=== PATIENT | male | born 1950 | race Caucasian/White ===

== ENCOUNTER 2017-02-11 22:33 | Inpatient (IN) | payer MEDICARE, OTHER ==
[~2017-02-11] VITALS: Ht 167.6 cm; Wt 59.9 kg
[~2017-02-11 22:33] MED LIST: AMLO10TA2 PO; CLON1TAB4 PO; DOXA4TAB3 PO; FAMO20TA8 PO; FLUT1DIS3 IH; GABA-534 PO; HYDR100T27 PO; ISOS40TA16 PO; LEVE250T4 PO; METO50TA3 PO; MORP15TA PO; OXYC-128 PO; QUET100T PO; VALS80TA2 PO
--- NOTE | 2017-02-11 22:45 | NUR ---
PT ALTERED, PT BREATHING AT ALSOW RATE, PT BIBA, PER EMS, PTWAS GIVEN ALOT OF PAIN MECICATION AT HIS MCFP, PT RESPIRATORY RATE WAS SLOW AND SHALLOW, PT PUT ON O2, MD IN ROOM, IV PLACED, LABS DRAWN, PT ON MONITOR, WILL CONTINUE TO MONITOR.
[2017-02-11] MEDS ORDERED: IV SET PRIMARY 1 EA INFUS.SET MC ONE (23:14)
[2017-02-11] MEDS ORDERED: IV NS 0.9% 1,000 ML ONE (23:14)
[2017-02-11 23:16] LABS: BASOPHILS % (AUTO) 0.7 % (0.0-2.0); EOSINOPHILS # (AUTO) 0.3 /CMM (0.0-0.7); EOSINOPHILS % (AUTO) 4.9 % (0.0-6.0); HEMATOCRIT 34 % (39-51); HEMOGLOBIN 11.2 g/dL (13.5-17.5); LYMPHOCYTES # (AUTO) 1.3 /CMM (0.8-4.8); LYMPHOCYTES % (AUTO) 22.5 % (20.0-44.0); MEAN CORPUSCULAR HEMOGLOBIN 26 PG (26.0-33.0); MEAN CORPUSCULAR HGB CONC 33 g/dl (31.0-36.0); MEAN CORPUSCULAR VOLUME 80 fL (80-96); MONOCYTES # (AUTO) 1.2 /CMM (0.1-1.30); MONOCYTES % (AUTO) 21.6 % (2.0-12.0); NEUTROPHILS # (AUTO) 2.8 /CMM (1.8-8.9); NEUTROPHILS % (AUTO) 50.3 % (43.0-81.0); PLATELET COUNT (AUTO) 197 /CMM (150-450); RDW COEFFICIENT OF VARIATION 14.7 (11.5-15.0); RED BLOOD CELL COUNT(AUTO) 4.26 MIL/uL (4.5-6.0); WHITE BLOOD COUNT (AUTO) 5.6 K/uL (4.3-11.0)
[2017-02-11 23:25] LABS: ABG OXYGEN SATURATION 91.7 % (92.0-98.5); ABG PCO2 38.3 mmHg (35.0-45.0); ABG PH 7.406 (7.350-7.450); ABG PO2 67.7 mmHg (75.0-100.0); ABG TOTAL HEMOGLOBIN 10.9 G/dL (13.5-18.0); AaDO2 36.2 mmHg; COHb 1.5 % (0.5-1.5); MetHb 0.5 % (0.0-1.5); O2Hb 89.9 % (94.0-97.0); SITE, ABG Right Radial; VENT MODE, BG Room Air
[2017-02-11 23:27] LABS: CALCIUM, SERUM 8.7 mg/dL (8.5-10.1); POTASSIUM 3.9 mmol/L (3.5-5.1)
[2017-02-11] MEDS ORDERED: IV NS 0.9% 1,000 ML BAG IV ONE (23:30)
[2017-02-11 23:35] LABS: ALBUMIN 3.5 g/dL (3.4-5.0); D-DIMER 2.82 mg/L(FEU (0.17-0.50); INR 1.08 (0.87-1.13); PROTHROMBIN TIME 11.6 SECS (9.5-12.7)
[2017-02-11 23:53] LABS: BILIRUBIN,DIRECT 0.2 mg/dL (0.0-0.2); BILIRUBIN,TOTAL 0.5 mg/dL (0.2-1.0); TOTAL PROTEIN, SERUM 8.5 g/dL (6.4-8.2)
[2017-02-11 23:54] LABS: TROPONIN I 0.032 ng/mL (0.00-0.056)
[2017-02-11 23:57] LABS: BAND % (MANUAL) 1 % (0.0-5.0); EOSINOPHILS % (MANUAL) 3 % (0-4); LYMPHOCYTES % (MANUAL) 18 % (16-48); MONOCYTES % (MANUAL) 22 % (0-11.0); NEUTROPHILS % (MANUAL) 56 (42-76); PLATELET ESTIMATE ADEQUATE
[2017-02-12] VITALS (7 sets, daily range): BP systolic 101–116; BP diastolic 70–76
[2017-02-12 00:22] LABS: ACETONE, SERUM NEGATIVE (NEGATIVE)
[2017-02-12] MEDS ORDERED: ENOXAPARIN SODIUM 60 MG/0.6 ML DISP.SYRIN SQ ONE ×2 (00:30→00:44)
[2017-02-12 00:39] LABS: LACTIC ACID 1.1 mmol/L (0.4-2.0)
[2017-02-12] MEDS ORDERED: ACETAMINOPHEN 325 MG TABLET PO PRN (03:00)
--- NOTE | 2017-02-12 03:00 | NUR ---
LICENSED PRACTICAL NURSE CLINIC NURSE NOTE: RECEIVED PATIENT FROM ER, NO ACUTE DISTRESS NOTED. BREATHING EVEN AND UNLABORED, NO SOB NOTED AT THIS TIME. OXYGEN IN PLACE VIA NC AT 2 LPM. IV TO RFA IN PLACE. PATIENT ALTERED AND CONFUSED, UNABLE TO ANSWER ADMISSION QUESTION. BED LOCKED AND IN LOWEST POSITION, CALL LIGHT IN REACH. WILL CONTINUE TO MONITOR.
--- NOTE | 2017-02-12 06:05 | NUR ---
CLOTH MERCERIZING SUPERVISOR NOTE: PATIENT RESTING IN BED, NO ACUTE DISTRESS NOTED. BREATHING EVEN AND UNLABORED, NO SOB NOTED AT THIS TIME. IV TO RFA IN PLACE. BED LOCKED AND IN LOWEST POSITION, CALL LIGHT IN REACH. WILL ENDORSE TO DAY NURSE TO CONTINUE WITH PLAN OF CARE.
[2017-02-12 06:30] LABS: BASOPHILS % (AUTO) 0.6 % (0.0-2.0); EOSINOPHILS # (AUTO) 0.3 /CMM (0.0-0.7); EOSINOPHILS % (AUTO) 5.9 % (0.0-6.0); HEMATOCRIT 32 % (39-51); HEMOGLOBIN 10.3 g/dL (13.5-17.5); LYMPHOCYTES # (AUTO) 1.3 /CMM (0.8-4.8); LYMPHOCYTES % (AUTO) 29.5 % (20.0-44.0); MEAN CORPUSCULAR HEMOGLOBIN 26 PG (26.0-33.0); MEAN CORPUSCULAR HGB CONC 32 g/dl (31.0-36.0); MEAN CORPUSCULAR VOLUME 81 fL (80-96); MONOCYTES # (AUTO) 0.9 /CMM (0.1-1.30); NEUTROPHILS # (AUTO) 1.8 /CMM (1.8-8.9); PLATELET COUNT (AUTO) 153 /CMM (150-450); RDW COEFFICIENT OF VARIATION 14.6 (11.5-15.0); RED BLOOD CELL COUNT(AUTO) 3.96 MIL/uL (4.5-6.0); WHITE BLOOD COUNT (AUTO) 4.3 K/uL (4.3-11.0)
[2017-02-12 06:42] LABS: TROPONIN I 0.031 ng/mL (0.00-0.056)
[2017-02-12 06:46] LABS: CALCIUM, SERUM 8.1 mg/dL (8.5-10.1); CREATININE 1.5 mg/dL (0.6-1.3); POTASSIUM 3.6 mmol/L (3.5-5.1)
--- NOTE | 2017-02-12 07:15 | NUR ---
ROTARY ADJUSTER NOTES PATIENT IN BED, RESPONSIVE TO STIMULI, BREATHING EVEN AND UNLABORED, NO S/SX OF DISTRESS NOTED, NO S/SX OF PAIN OR DISCOMFORT AT THIS TIME, CALL LIGHT WITHIN REACH, WILL CONTINUE TO MONITOR.
--- NOTE | 2017-02-12 08:04 | NUR ---
WOUND CARE CONSULT: PATIENT SEEN AND SKIN ASSESSMENT DONE. PATIENT MOVABLE IN BED, INCONTINENT, TOMMY 15. PATIENT PRESENTS WITH INTACT SKIN AT THIS TIME. INCONTINENT SKIN CARE AND MOISTURE PROTECTION WITH Z GUARD ORDERED WAS DISCUSSED WITH NURSING STAFF. IN AGREEMENT WITH PLAN OF CARE. Addendum: 02/12/17 at 0806 by IVANA LOW WNDNU Amended: Links added.
--- NOTE | 2017-02-12 08:15 | NUR ---
DEPUTY CHIEF COUNSEL NOTES INFORMED DR. CELESTE PATIENT IS WHEEZING, BUT VITAL SIGNS STABLE, SPO2 ON 97% IN 2LPM VIA NC, DISCUSSED HOME MEDS RECONCILIATION, RECEIVED ORDER TO CONTINUE ALL MEDICATIONS, EXCEPT FOR PAIN MEDICATIONS AND TO GIVE ALBUTEROL AND ATROVENT Q6H PRN FOR WHEEZING. ORDER NOTED AND CARRIED OUT, PATIENT MADE AWARE AND AGREED. RT AWARE.
[2017-02-12] MEDS ORDERED: ALBUTEROL FS 2.5 MG/3 ML VIAL.NEB ONE (08:16)
[2017-02-12] MEDS ORDERED: IPRATROPIUM NEB FS 0.5 MG/2.5 ML AMPUL.NEB ONE (08:16)
[2017-02-12 08:18] LABS: EOSINOPHILS % (MANUAL) 2 % (0-4); LYMPHOCYTES % (MANUAL) 16 % (16-48); MONOCYTES % (MANUAL) 20 % (0-11.0); NEUTROPHILS % (MANUAL) 62 (42-76)
[2017-02-12 08:19] LABS: ANISOCYTOSIS 1+; HYPOCHROMASIA 1+; PLATELET ESTIMATE DECREASED
[2017-02-12] MEDS: ALBUTEROL FS 2.5 MG/3 ML VIAL.NEB NEB PRN (08:20)
[2017-02-12] MEDS: IPRATROPIUM NEB FS 0.5 MG/2.5 ML AMPUL.NEB NEB PRN (08:20)
[2017-02-12] MEDS ORDERED: Z GUARD REMEDY 2 OZ OINT TP PRN (08:30)
[2017-02-12] MEDS: METOPROLOL TARTRATE 50 MG TABLET PO SCH ×2 (09:00→21:00)
[2017-02-12] MEDS: VALSARTAN 80 MG TABLET PO SCH (09:00)
[2017-02-12] MEDS: DOXAZOSIN MESYLATE (4 MG) 4 MG TABLET PO SCH (09:00)
[2017-02-12] MEDS: AMLODIPINE BESYLATE 10 MG TABLET PO SCH (09:00)
[2017-02-12] MEDS: PANTOPRAZOLE 40 MG TABLET.DR PO SCH (09:22)
[2017-02-12] MEDS: GABAPENTIN 300 MG CAPSULE PO SCH ×3 (09:23→17:00)
[2017-02-12] MEDS: LEVETIRACETAM (250 MG) 250 MG TABLET PO SCH ×2 (09:23→21:23)
[2017-02-12] MEDS: Z GUARD REMEDY 2 OZ OINT TP SCH ×2 (09:24→16:54)
[2017-02-12] MEDS: hydrALAZINE HCL 50 MG TABLET PO SCH ×3 (09:24→16:57)
[2017-02-12] MEDS: ISOSORBIDE DINITRATE (20MG) 20 MG TABLET PO SCH ×2 (09:24→17:00)
[2017-02-12] MEDS: FLUTICASONE/SALMETEROL DISKUS IH SCH ×2 (09:25→16:57)
--- NOTE | 2017-02-12 10:00 | NUR ---
AUTO MECHANICS INSTRUCTOR NOTES PATIENT IN BED, ALERT AND ORIENTED X2, TOLERATED BREAKFAST AND MEDICATIONS. NO SOB NOTED, NO DISTRESS, NEEDS ATTENDED, WILL CONTINUE TO MONITOR.
[2017-02-12] MEDS ORDERED: LEVOFLOXACIN 500 MG /D5W 100ML 500 MG in PREMIX 1 EA IV SCH (12:00)
[2017-02-12] MEDS ORDERED: ENOXAPARIN SODIUM 60 MG/0.6 ML DISP.SYRIN SQ SCH (12:00)
[2017-02-12] MEDS: methylPREDNISolone SOD SUCC 125 MG/2ML VIAL IV SCH ×2 (12:48→16:54)
[2017-02-12] MEDS ORDERED: IV SET PRIMARY PUMP SET 1 EA INFUS.SET MC ONE (12:55)
[2017-02-12] MEDS ORDERED: IV NS 0.9% 250 ML IV ONE (12:55)
[2017-02-12] MEDS ORDERED: LEVOFLOXACIN 500 MG /D5W 100ML 500 MG in PREMIX 1 EA IV ONE (13:00)
[2017-02-12] MEDS ORDERED: SECONDARY IV SET 1 EA INFUS.SET MC ONE (13:31)
--- NOTE | 2017-02-12 17:06 | NUR ---
ELECTRICAL MANAGER NOTES PATIENT ASLEEP, EASILY AROUSABLE BUT WONT STAY AWAKE TO TAKE ORAL MEDICATIONS, REFUSED SOME MEDICATIONS AT THIS TIME. VITAL SIGNS STABLE, NO DISTRESS NOTED, CALL LIGHT WITHIN REACH, WILL CONTINUE TO MONITOR.
--- NOTE | 2017-02-12 17:09 | NUR ---
OFFICIAL GREETER NOTES MEDICATIONS WASTED WITNESSED BY ANOTHER RN. Addendum: 02/12/17 at 1711 by VERONICA RANDOLPH RN NURSE JOHN.
--- NOTE | 2017-02-12 18:42 | NUR ---
RN MS NOTES PATIENT IN BED, SLEEPING BUT RESPONSIVE TO STIMULI, NO S/SX OF PAIN OR DISTRESS NOTED AT THIS TIME, NO SIGNIFICANT CHANGE THIS SHIFT, BLE DOPPLER COMPLETED, RESULT STILL PENDING, ALL NEEDS ATTENDED AND MET, CALL LIGHT PLACED WITHIN REACH, WILL ENDORSE TO CARPENTER RAILCAR FOR STEFANY.
--- NOTE | 2017-02-12 19:26 | NUR ---
MS PARIS NOTES RECEIVED ON BED AWAKE,ALERT,ORIENTED X4,BREATHING REGULAR,NOT IN ANY FORM OF DISTRESS.FAMILY MEMBERS AT BEDSIDE.DENIES DISCOMFORTS AT THE MOMENT.PRESENT IVF INFUSING WELL ON RIGHT FA VIA IV PUMP.CALL LIGHT IN REACH,NEEDS ANTICIPATED. Addendum: 02/12/17 at 1941 by CHARITO SANTOS RN WRONG ENTRY OF NOTES
--- NOTE | 2017-02-12 19:41 | NUR ---
MS RN NOTES RECEIVED ON BED SLEEPING,AROUSABLE TO VERBAL STIMULI,BREATHING REGULAR,NOT IN ANY FORM OF DISTRESS.SALINE LOCK RFA INTACT AND PATENT.ENCOURAGED TO AT DINNER FOOD.CALL LIGHT IN REACH,NEEDS ANTICIPATED.
[2017-02-12] MEDS: FAMOTIDINE (20 MG) 20 MG TABLET PO SCH (21:25)
--- NOTE | 2017-02-12 21:30 | NUR ---
MS RN NOTES DUE PO MEDS TAKEN WELL WITH APPLE SAUCE.DUE LOPRESSOR 100MG PO HELD FOR DECREASED BP 101/73.
[2017-02-12] MEDS: clonazePAM 1 MG TABLET PO SCH (22:00)
--- NOTE | 2017-02-13 | NUR ---
MS RN NOTES NOTED IV SITE INFILTRATED,NEW SALINE LOCK PLACE ON LFA #22
[2017-02-13] MEDS: ONDANSETRON HCL/PF 4 MG/2 ML VIAL IV PRN ×2 (00:20→09:00)
--- NOTE | 2017-02-13 00:20 | NUR ---
MS RN NOTES VOMITED X1,MOSTLY UNDIGESTED FOOD,MEDICATED WITH ZOFRAN 4MG IV ON LEFT FOREARM SALINE LOCK.
--- NOTE | 2017-02-13 06:31 | NUR ---
MS RN NOTES SLEPT WELL AFTER MEDICATED WITH ZOFRAN.NO EPISODE OF SOB NOTED.MED COMPLAINT.NEGATIVE FOR ASPIRATION.NO EPISODE OF SEIZURE NOTED.SIDE RAILS PADDED FOR SAFETY.IN NO ACUTE DISTRESS.WILL ENDORSE TO DAY NURSE FOR STEFANY.
[2017-02-13 06:39] LABS: BASOPHILS % (AUTO) 0.2 % (0.0-2.0); EOSINOPHILS % (AUTO) 0.1 % (0.0-6.0); HEMATOCRIT 34 % (39-51); HEMOGLOBIN 11.1 g/dL (13.5-17.5); LYMPHOCYTES # (AUTO) 0.5 /CMM (0.8-4.8); LYMPHOCYTES % (AUTO) 14.6 % (20.0-44.0); MEAN CORPUSCULAR HEMOGLOBIN 26 PG (26.0-33.0); MEAN CORPUSCULAR HGB CONC 33 g/dl (31.0-36.0); MEAN CORPUSCULAR VOLUME 80 fL (80-96); MONOCYTES # (AUTO) 0.6 /CMM (0.1-1.30); MONOCYTES % (AUTO) 17.1 % (2.0-12.0); NEUTROPHILS # (AUTO) 2.6 /CMM (1.8-8.9); PLATELET COUNT (AUTO) 154 /CMM (150-450); RDW COEFFICIENT OF VARIATION 14.6 (11.5-15.0); RED BLOOD CELL COUNT(AUTO) 4.23 MIL/uL (4.5-6.0); WHITE BLOOD COUNT (AUTO) 3.8 K/uL (4.3-11.0)
[2017-02-13 07:11] LABS: CREATININE 1.4 mg/dL (0.6-1.3); POTASSIUM 3.4 mmol/L (3.5-5.1)
--- NOTE | 2017-02-13 07:17 | NUR ---
RN NOTES RECEIVED PT IN BED. SLEEPING,EASY TO AROUSE. IN NO APPARENT DISTRESS. RESPIRATIONS EVEN AND UNLABORED. DENIES PAIN AND DISCOMFORT. CALL LIGHT WITHIN REACH. WILL CONTINUE TO MONITOR
[2017-02-13 08:00] VITALS: BP_SYST 120; BP_SYST 130; BP_DIAS 83
[2017-02-13 08:37] LABS: HYPOCHROMASIA 1+; LYMPHOCYTES % (MANUAL) 18 % (16-48); MONOCYTES % (MANUAL) 16 % (0-11.0); NEUTROPHILS % (MANUAL) 66 (42-76); PLATELET ESTIMATE ADEQUATE
[2017-02-13] MEDS: PANTOPRAZOLE 40 MG TABLET.DR PO SCH (08:49)
[2017-02-13] MEDS: ENOXAPARIN SODIUM 40 MG/0.4 ML DISP.SYRIN SQ SCH (08:50)
[2017-02-13] MEDS: LEVETIRACETAM (250 MG) 250 MG TABLET PO SCH ×2 (08:51→22:00)
[2017-02-13] MEDS: VALSARTAN 80 MG TABLET PO SCH (08:57)
[2017-02-13] MEDS: FLUTICASONE/SALMETEROL DISKUS IH SCH ×2 (08:57→16:31)
[2017-02-13] MEDS: methylPREDNISolone SOD SUCC 125 MG/2ML VIAL IV SCH ×3 (08:57→16:30)
[2017-02-13] MEDS: DOXAZOSIN MESYLATE (4 MG) 4 MG TABLET PO SCH (08:57)
[2017-02-13] MEDS: METOPROLOL TARTRATE 50 MG TABLET PO SCH ×2 (08:58→22:01)
[2017-02-13] MEDS: ISOSORBIDE DINITRATE (20MG) 20 MG TABLET PO SCH ×2 (08:58→16:30)
[2017-02-13] MEDS: GABAPENTIN 300 MG CAPSULE PO SCH ×3 (08:58→16:30)
[2017-02-13] MEDS: hydrALAZINE HCL 50 MG TABLET PO SCH ×3 (08:58→16:30)
[2017-02-13] MEDS: AMLODIPINE BESYLATE 10 MG TABLET PO SCH (08:58)
[2017-02-13] MEDS: Z GUARD REMEDY 2 OZ OINT TP SCH ×2 (08:59→16:32)
--- NOTE | 2017-02-13 10:00 | NUR ---
RN NOTES PT TOLERATED ALL MEDS AND TREATMENTS. NOTED TO HAVE X2 EPISODE OF EMESIS AND SOME NAUSEA. ADMINSITERED PRN ZOFRAN. WILL CONTINUE TO MONITOR
--- NOTE | 2017-02-13 11:00 | NUR ---
RN NOTES PT SEEN BY PHYSICAL THERAPY FOR EVAL- ABLE TO AMBULATE WITH ASSISTANCE AND WITH WALKER, X 4 STEPS. PT NOTED WITH TACHYCARDIA- ASSISTED TO BED. WILL CONTINUE TO MONITOR
[2017-02-13] MEDS ORDERED: POTASSIUM CHLORIDE 20 MEQ TAB.PRT.SR PO SCH (11:30)
[2017-02-13] MEDS: LEVOFLOXACIN 250 MG /D5W 50 ML 250 MG in PREMIX 1 EA IV SCH (12:06)
--- NOTE | 2017-02-13 12:30 | NUR ---
RN NOTES PT SEEN AND EXAMINED BY DR CELESTE. REPORTED EPISODES OF TACHYCARDIA AND MULTIPLE EPISODES OF EMESIS- WITH NEW ORDERS NOTED AND CARRIED OUT. WILL CONTINUE TO MONITOR
[2017-02-13] MEDS ORDERED: ONDANSETRON HCL/PF 4 MG/2 ML VIAL IV PRN (13:30)
[2017-02-13] MEDS ORDERED: IV SET PRIMARY PUMP SET 1 EA INFUS.SET MC ONE (13:46)
[2017-02-13] MEDS: IV D5/ 0.9% NACL 1,000 ML IV SCH (13:52)
[2017-02-13 16:00] VITALS: BP 129/96
[2017-02-13] MEDS: MORPHINE SULFATE INJ 2 MG/ML DISP.SYRIN IV PRN (16:31)
--- NOTE | 2017-02-13 18:00 | NUR ---
RN NOTES PT IN BED. SLEEPING, BUT EASY TO AROUSE. IN NO APPARENT DISTRESS. RESPIRATIONS EVEN AND UNLABORED. NOTED IMPROVED NAUSEA. WILL ENDORSE TO ONCOMING SHIFT
[2017-02-13 20:00] VITALS: BP 119/78
--- NOTE | 2017-02-13 20:00 | NUR ---
MS NICHOLAS INITIAL NOTES PT SEEN IN BED AWAKE AND ALERT WATCHING TV AT THIS TIME, WITH 02 AT 2 LITERS VIA NC. NO SOB NOTED AT THIS TIME. IVF STILL INFUSING ON HIS RIGHT FOREARM GAUGE 22, PATENT AND INTACT , DENIES ANY PAIN OR ANY DISCOMFORT. KEPT HIM WARM AND COMFORTABLE AT ALL TIMES. WILL CONTINUE TO MONITOR. PLACE CALL LIGHT AT REACH.
[2017-02-13] MEDS: IPRATROPIUM NEB FS 0.5 MG/2.5 ML AMPUL.NEB NEB PRN (21:21)
[2017-02-13] MEDS: ALBUTEROL FS 2.5 MG/3 ML VIAL.NEB NEB PRN (21:21)
[2017-02-13] MEDS: FAMOTIDINE (20 MG) 20 MG TABLET PO SCH (22:00)
[2017-02-13] MEDS: clonazePAM 1 MG TABLET PO SCH (22:00)
--- NOTE | 2017-02-14 | NUR ---
MS NICHOLAS NOTES PT SLEEPING COMFORTABLY IN BED WITHOUT ANY ACUTE DISTRESS NOTED. RESPIRATION EVEN AND UN-LABORED. KEPT HIM WARM AND COMFORTABLE AT ALL TIMES. WILL CONTINUE TO MONITOR. PLACE CALL LIGHT AT REACH.
[2017-02-14] MEDS: IV D5/ 0.9% NACL 1,000 ML IV SCH ×2 (03:48→17:55)
--- NOTE | 2017-02-14 07:03 | NUR ---
CAMP HOUSEKEEPER/CLOSING NOTES MORNING CARE DONE AND PT SLEPT WELL, NO SIGNS OF ANY ACUTE DISTRESS NOTED. ALL DUE MEDS GIVEN AND ALL NEEDS MET. IVF STILL INFUSING . STABLE CARROL THE NIGHT AND ENDORSE TO AM NURSE FOR CONTINUITY OF CARE. PLACE CALL LIGHT AT REACH.
[2017-02-14 07:53] LABS: CALCIUM, SERUM 9.1 mg/dL (8.5-10.1); CREATININE 1.2 mg/dL (0.6-1.3); POTASSIUM 3.8 mmol/L (3.5-5.1)
[2017-02-14 08:00] VITALS: BP 139/87
--- NOTE | 2017-02-14 08:00 | NUR ---
MS RN OPENING NOTES PT IN BED RESTING. PT IS A/O X 3. PATIENT DID NOT SHOW ANY S/S OF DISTRESS. PT HAD 3 L/MIN OF O2 VIA NASAL CANNULA. RAISED THE HEAD OF THE BED TO ARCHULETA'S POSITION TO IMPROVE THE PATIENT'S WORK OF BREATHING. PT IV PATENT AND INTACT. PT BED IN LOW LOCKED POSITION. WILL CONTINUE TO MONITOR THE PATIENT FOR ANY CHANGES THROUGHOUT SHIFT.
[2017-02-14] MEDS: ENOXAPARIN SODIUM 40 MG/0.4 ML DISP.SYRIN SQ SCH (08:46)
[2017-02-14] MEDS: methylPREDNISolone SOD SUCC 125 MG/2ML VIAL IV SCH ×2 (08:47→21:32)
[2017-02-14] MEDS: VALSARTAN 80 MG TABLET PO SCH (08:48)
[2017-02-14] MEDS: LEVETIRACETAM (250 MG) 250 MG TABLET PO SCH ×2 (08:48→21:38)
[2017-02-14] MEDS: METOPROLOL TARTRATE 50 MG TABLET PO SCH ×2 (08:48→21:38)
[2017-02-14] MEDS: DOXAZOSIN MESYLATE (4 MG) 4 MG TABLET PO SCH (08:49)
[2017-02-14] MEDS: ISOSORBIDE DINITRATE (20MG) 20 MG TABLET PO SCH ×2 (08:49→17:52)
[2017-02-14] MEDS: AMLODIPINE BESYLATE 10 MG TABLET PO SCH (08:49)
[2017-02-14] MEDS: PANTOPRAZOLE 40 MG TABLET.DR PO SCH (08:49)
[2017-02-14] MEDS: GABAPENTIN 300 MG CAPSULE PO SCH ×3 (08:49→17:53)
[2017-02-14] MEDS: FLUTICASONE/SALMETEROL DISKUS IH SCH ×2 (08:50→17:52)
[2017-02-14] MEDS: hydrALAZINE HCL 50 MG TABLET PO SCH ×3 (08:50→17:53)
[2017-02-14] MEDS: Z GUARD REMEDY 2 OZ OINT TP SCH ×2 (08:52→17:55)
[2017-02-14] MEDS: ALBUTEROL FS 2.5 MG/3 ML VIAL.NEB NEB PRN ×2 (11:50→20:15)
[2017-02-14] MEDS: IPRATROPIUM NEB FS 0.5 MG/2.5 ML AMPUL.NEB NEB PRN ×2 (11:50→20:16)
[2017-02-14] MEDS: MORPHINE SULFATE INJ 2 MG/ML DISP.SYRIN IV PRN ×3 (12:10→22:09)
[2017-02-14] MEDS: LEVOFLOXACIN 250 MG /D5W 50 ML 250 MG in PREMIX 1 EA IV SCH (12:11)
[2017-02-14] MEDS ORDERED: SECONDARY IV SET 1 EA INFUS.SET MC ONE (12:14)
[2017-02-14 16:00] VITALS: BP 128/80
--- NOTE | 2017-02-14 19:00 | NUR ---
MS RN NOTES PATIENT IN BED RESTING NO SOB OR ACUTE DISTRESS NOTED. ALL DUE MEDICATIONS GIVEN ALL NEEDS MET WILL ENDORSE TO PM SHIFT STEFANY.
--- NOTE | 2017-02-14 19:10 | NUR ---
MS RN NOTES RECEIVED PT IN BED. AWAKE/ O X 2 , VERBALLY RESPONSIVE. WATCHING TV AT THIS TIME. NO ACUTE DISTRESS, NO SOB NOTED. ON 02 @ 2LPM VIA NC FRANCISCA WELL. 02 SAT IS 95 % AT THIS TIME. DENIES ANY PAIN OR DISCOMFORT AT THIS TIME. IV SITE ON RFA G # 22 INTACT AND PATENT , NO S/S OF INFILTRATION NOTED. IVF INFUSING WELL. ALL NEEDS ATTENDED AND MET. KEPT COMFORTABLE. CALL LIGHT WITHIN REACH. WILL CONTINUE TO MONITOR.
[2017-02-14 20:40] VITALS: BP 107/67
[2017-02-14] MEDS: clonazePAM 1 MG TABLET PO SCH (21:36)
[2017-02-14] MEDS: FAMOTIDINE (20 MG) 20 MG TABLET PO SCH (21:38)
[2017-02-14 22:00] VITALS: BP 107/67
[2017-02-15] MEDS: MORPHINE SULFATE INJ 2 MG/ML DISP.SYRIN IV PRN ×2 (03:20→08:56)
[2017-02-15] MEDS: IPRATROPIUM NEB FS 0.5 MG/2.5 ML AMPUL.NEB NEB PRN (03:37)
[2017-02-15] MEDS: ALBUTEROL FS 2.5 MG/3 ML VIAL.NEB NEB PRN (03:38)
--- NOTE | 2017-02-15 06:51 | NUR ---
MS RN NOTES PT IN BED. RESTING COMFORTABLY AT THIS TIME. AROUSES EASILY. AWAKE/ O X 2 , VERBALLY RESPONSIVE. WATCHING TV AT THIS TIME. NO ACUTE DISTRESS, NO SOB NOTED. ON 02 @ 2LPM VIA NC FRANCISCA WELL. 02 SAT IS 95 % AT THIS TIME. DENIES ANY PAIN OR DISCOMFORT AT THIS TIME. IV SITE ON RFA G # 22 INTACT AND PATENT , NO S/S OF INFILTRATION NOTED. IVF INFUSING WELL. ALL NEEDS ATTENDED AND MET. KEPT COMFORTABLE. CALL LIGHT WITHIN REACH. WILL ENDORSE TO NEXT SHIFT FOR STEFANY
[2017-02-15 08:00] VITALS: BP 130/82
--- NOTE | 2017-02-15 08:00 | NUR ---
MS RN NOTES PATIENT IN BED RESTING COMFORTABLE. IV INTACT PATENT ON RIGHT FOREARM RUNNING PRESCRIBED FLUIDS. BED IN LOW LOCKED POSITION. BED IN LOW LOCKED POSITION. WILL CONTINUE TO MONITOR.
[2017-02-15 08:31] LABS: CALCIUM, SERUM 8.4 mg/dL (8.5-10.1); CREATININE 1.2 mg/dL (0.6-1.3); POTASSIUM 3.1 mmol/L (3.5-5.1)
[2017-02-15] MEDS: PANTOPRAZOLE 40 MG TABLET.DR PO SCH (08:53)
[2017-02-15] MEDS: LEVETIRACETAM (250 MG) 250 MG TABLET PO SCH (08:53)
[2017-02-15] MEDS: DOXAZOSIN MESYLATE (4 MG) 4 MG TABLET PO SCH (08:54)
[2017-02-15] MEDS: methylPREDNISolone SOD SUCC 125 MG/2ML VIAL IV SCH (08:54)
[2017-02-15] MEDS: METOPROLOL TARTRATE 50 MG TABLET PO SCH (08:54)
[2017-02-15] MEDS: ISOSORBIDE DINITRATE (20MG) 20 MG TABLET PO SCH (08:55)
[2017-02-15] MEDS: GABAPENTIN 300 MG CAPSULE PO SCH ×2 (08:55→12:45)
[2017-02-15] MEDS: hydrALAZINE HCL 50 MG TABLET PO SCH ×2 (08:55→13:00)
[2017-02-15] MEDS: VALSARTAN 80 MG TABLET PO SCH (08:55)
[2017-02-15] MEDS: AMLODIPINE BESYLATE 10 MG TABLET PO SCH (08:55)
[2017-02-15] MEDS: IV D5/ 0.9% NACL 1,000 ML IV SCH (08:56)
[2017-02-15] MEDS: FLUTICASONE/SALMETEROL DISKUS IH SCH (08:56)
[2017-02-15] MEDS: ENOXAPARIN SODIUM 40 MG/0.4 ML DISP.SYRIN SQ SCH (08:57)
[2017-02-15] MEDS: Z GUARD REMEDY 2 OZ OINT TP SCH (08:58)
--- NOTE | 2017-02-15 10:00 | NUR ---
MS RN NOTES PATIENT SEEN AND EVALUATED BY DR CELESTE ORDERS NOTED AND CARRIED OUT.
[2017-02-15] MEDS: POTASSIUM CHLORIDE 20 MEQ TAB.PRT.SR PO SCH ×2 (12:45→13:21)
[2017-02-15 13:00] VITALS: BP 120/87
[2017-02-15] MEDS ORDERED: LEVOFLOXACIN (500MG) 500 MG TABLET PO SCH (13:00)
--- NOTE | 2017-02-15 13:40 | NUR ---
MS RN NOTES PATIENT DISCHARGED TO [facility] IN STABLE CONDITION. NO SOB OR ACUTE DISTRESS NOTED. REPORT GIVEN TO RN RATTLING MACHINE TENDER AT SNF. MD AWARE OF ALL ABNORMAL LABS. DISCHARGE INSTRUCTIONS PROVIDED TO PATIENT ALSO SN AT SNF. ALL BELONGINGS ACCOUNTED FOR, PATIENT SIGNED BELONGING LIST. MED RECON INCLUDED IN DISCHARGE PAPERWORK. IV REMOVED WITH MINIMAL BLEEDING. ID BAND REMOVED. DISCHARGED VIA AMBULANCE.
== END 2017-02-15 13:40 | DRG 189 ==
LOC: ER 22:36 → TELE 02-12 01:01 → MED 02-12 15:39
PROVIDERS: ADMIT Legal Medicine; ATTEND Legal Medicine
DX: J96.01 Acute respiratory failure with hypoxia (principal); G93.40 Encephalopathy, unspecified; J44.1 Chronic obstructive pulmonary disease with (acute) exacerbation; I42.9 Cardiomyopathy, unspecified; G89.4 Chronic pain syndrome; I10 Essential (primary) hypertension; K21.9 Gastro-esophageal reflux disease without esophagitis; J45.909 Unspecified asthma, uncomplicated; N40.0 Benign prostatic hyperplasia without lower urinary tract symptoms; F17.210 Nicotine dependence, cigarettes, uncomplicated; Z79.899 Other long term (current) drug therapy; Z98.2 Presence of cerebrospinal fluid drainage device; E78.00 Pure hypercholesterolemia, unspecified; R56.9 Unspecified convulsions; R94.31 Abnormal electrocardiogram [ECG] [EKG]
CPT/HCPCS: 36415; 36600; 71010-TC; 74000-TC; 78582; 80048-TC; 80061-TC; 80076-TC; 82010-TC; 82272-TC; 82962-TC; 83605-TC; 83880; 84484-TC; 85025-TC; 85378-TC; 85730-TC; 87081-TC; 93970-TC; 94799-TC; 97001-TC; 97116-TC; 97530-TC; A4216; A4606; A9540; A9567; J1650; J1956; J2270; J2405; J2930; J7030; J7042; J7050; Z7610

== ENCOUNTER 2017-04-18 19:20 | Inpatient (IN) | payer MEDICARE, OTHER ==
[~2017-04-18] VITALS: Ht 175.3 cm; Wt 55.3 kg
[~2017-04-18 19:20] MED LIST changes: -MORP15TA PO; -OXYC-128 PO
[2017-04-18 21:09] LABS: BASOPHILS % (AUTO) 0.4 % (0.0-2.0); EOSINOPHILS # (AUTO) 0.3 /CMM (0.0-0.7); EOSINOPHILS % (AUTO) 3.6 % (0.0-6.0); HEMATOCRIT 35 % (39-51); HEMOGLOBIN 11.4 g/dL (13.5-17.5); LYMPHOCYTES # (AUTO) 1.5 /CMM (0.8-4.8); MEAN CORPUSCULAR HEMOGLOBIN 25 PG (26.0-33.0); MEAN CORPUSCULAR HGB CONC 32 g/dl (31.0-36.0); MEAN CORPUSCULAR VOLUME 79 fL (80-96); MONOCYTES # (AUTO) 1.1 /CMM (0.1-1.30); MONOCYTES % (AUTO) 13.9 % (2.0-12.0); NEUTROPHILS # (AUTO) 5.1 /CMM (1.8-8.9); NEUTROPHILS % (AUTO) 63.1 % (43.0-81.0); PLATELET COUNT (AUTO) 229 /CMM (150-450); RDW COEFFICIENT OF VARIATION 14.9 (11.5-15.0)
[2017-04-18 21:21] LABS: CREATININE 2.4 mg/dL (0.6-1.3); POTASSIUM 4.4 mmol/L (3.5-5.1)
[2017-04-18 21:26] LABS: INR 1.11 (0.87-1.13); PROTHROMBIN TIME 11.6 SECS (9.5-12.7)
[2017-04-18 21:27] LABS: ALBUMIN 2.9 g/dL (3.4-5.0); BILIRUBIN,DIRECT 0.2 mg/dL (0.0-0.2); BILIRUBIN,TOTAL 0.5 mg/dL (0.2-1.0); TOTAL PROTEIN, SERUM 7.7 g/dL (6.4-8.2)
[2017-04-18 22:33] VITALS: BP 109/69
[2017-04-18] MEDS ORDERED: ONDANSETRON HCL/PF 4 MG/2 ML VIAL IV PRN (23:30)
[2017-04-18] MEDS ORDERED: ACETAMINOPHEN 325 MG TABLET PO PRN (23:30)
[2017-04-18] MEDS ORDERED: IV NS 0.9% 1,000 ML BAG IV PRN (23:30)
[2017-04-18] MEDS ORDERED: MORPHINE SULFATE INJ 2 MG/ML DISP.SYRIN IV PRN (23:30)
[2017-04-18] MEDS ORDERED: ENOXAPARIN SODIUM 40 MG/0.4 ML DISP.SYRIN SQ SCH (23:30)
[2017-04-18] MEDS ORDERED: CLONIDINE HCL 0.1 MG TABLET PO PRN (23:30)
[2017-04-19] MEDS ORDERED: ENOXAPARIN SODIUM 40 MG/0.4 ML DISP.SYRIN SQ ONE (00:21)
[2017-04-19] MEDS ORDERED: IV SET PRIMARY PUMP SET 1 EA INFUS.SET MC ONE (00:34)
[2017-04-19] MEDS ORDERED: IV NS 0.9% 1,000 ML ONE (00:34)
[2017-04-19 06:28] LABS: BASOPHILS % (AUTO) 0.5 % (0.0-2.0); EOSINOPHILS # (AUTO) 0.2 /CMM (0.0-0.7); EOSINOPHILS % (AUTO) 3.2 % (0.0-6.0); HEMATOCRIT 35 % (39-51); HEMOGLOBIN 11.4 g/dL (13.5-17.5); LYMPHOCYTES # (AUTO) 1.2 /CMM (0.8-4.8); LYMPHOCYTES % (AUTO) 16.5 % (20.0-44.0); MEAN CORPUSCULAR HEMOGLOBIN 26 PG (26.0-33.0); MEAN CORPUSCULAR HGB CONC 33 g/dl (31.0-36.0); MEAN CORPUSCULAR VOLUME 79 fL (80-96); MONOCYTES % (AUTO) 13.3 % (2.0-12.0); NEUTROPHILS % (AUTO) 66.5 % (43.0-81.0); PLATELET COUNT (AUTO) 203 /CMM (150-450); RED BLOOD CELL COUNT(AUTO) 4.37 MIL/uL (4.5-6.0); WHITE BLOOD COUNT (AUTO) 7.5 K/uL (4.3-11.0)
[2017-04-19 07:15] LABS: ALBUMIN 2.7 g/dL (3.4-5.0); BILIRUBIN,TOTAL 0.4 mg/dL (0.2-1.0); CREATININE 1.8 mg/dL (0.6-1.3); POTASSIUM 4.5 mmol/L (3.5-5.1); TOTAL PROTEIN, SERUM 7.5 g/dL (6.4-8.2)
[2017-04-19 07:50] VITALS: BP 125/79
[2017-04-19 08:00] VITALS: BP 125/79
[2017-04-19] MEDS ORDERED: OXYC-128 PO (08:10)
[2017-04-19] MEDS ORDERED: MORP15TA PO (08:10)
[2017-04-19] MEDS ORDERED: DOCU-25 PO (08:10)
[2017-04-19] MEDS ORDERED: FLUT1BLS IH (08:10)
[2017-04-19] MEDS: METOPROLOL TARTRATE 50 MG TABLET PO SCH ×2 (09:00→21:18)
[2017-04-19] MEDS ORDERED: MORPHINE SULFATE IR 15 MG TABLET PO SCH (09:00)
[2017-04-19] MEDS ORDERED: FLUTICASONE/SALMETEROL DISKUS IH SCH (09:00)
[2017-04-19] MEDS: AMLODIPINE BESYLATE 10 MG TABLET PO SCH (09:00)
[2017-04-19] MEDS: VALSARTAN 80 MG TABLET PO SCH (09:00)
[2017-04-19] MEDS ORDERED: ISOSORBIDE DINITRATE (20MG) 20 MG TABLET PO SCH (09:30)
[2017-04-19] MEDS: DOCUSATE SODIUM 100 MG CAPSULE PO SCH ×2 (09:38→17:20)
[2017-04-19] MEDS: LEVETIRACETAM (250 MG) 250 MG TABLET PO SCH ×2 (09:38→21:18)
[2017-04-19] MEDS: GABAPENTIN 300 MG CAPSULE PO SCH ×3 (09:38→17:20)
[2017-04-19] MEDS: DOXAZOSIN MESYLATE (4 MG) 4 MG TABLET PO SCH (09:39)
[2017-04-19] MEDS: PANTOPRAZOLE 40 MG TABLET.DR PO SCH (09:39)
[2017-04-19] MEDS: FLUTICASONE/VILANTEROL 1 EACH BLST.W.DEV IH SCH (12:50)
[2017-04-19] MEDS: hydrALAZINE HCL 50 MG TABLET PO SCH ×2 (13:00→21:18)
[2017-04-19 16:07] VITALS: BP 107/72
[2017-04-19] MEDS: ISOSORBIDE DINITRATE (20MG) 20 MG TABLET PO SCH (17:00)
[2017-04-19] MEDS: IV NS 0.9% 1,000 ML IV PRN (17:19)
[2017-04-19 20:03] VITALS: BP 118/77
[2017-04-19 20:30] VITALS: BP 118/77
[2017-04-19] MEDS: clonazePAM 1 MG TABLET PO SCH (21:18)
[2017-04-19] MEDS: QUETIAPINE FUMARATE 100 MG TABLET PO SCH (21:18)
[2017-04-19] MEDS: ENOXAPARIN SODIUM 40 MG/0.4 ML DISP.SYRIN SQ SCH (21:26)
[2017-04-20] MEDS: hydrALAZINE HCL 50 MG TABLET PO SCH ×3 (05:00→21:00)
[2017-04-20] MEDS: IV NS 0.9% 1,000 ML IV PRN (06:23)
[2017-04-20 07:16] LABS: BASOPHILS % (AUTO) 0.5 % (0.0-2.0); EOSINOPHILS # (AUTO) 0.2 /CMM (0.0-0.7); HEMATOCRIT 34 % (39-51); HEMOGLOBIN 11.3 g/dL (13.5-17.5); LYMPHOCYTES # (AUTO) 1.4 /CMM (0.8-4.8); LYMPHOCYTES % (AUTO) 24.6 % (20.0-44.0); MEAN CORPUSCULAR HEMOGLOBIN 26 PG (26.0-33.0); MEAN CORPUSCULAR HGB CONC 33 g/dl (31.0-36.0); MEAN CORPUSCULAR VOLUME 79 fL (80-96); MONOCYTES # (AUTO) 0.9 /CMM (0.1-1.30); MONOCYTES % (AUTO) 15.8 % (2.0-12.0); NEUTROPHILS # (AUTO) 3.1 /CMM (1.8-8.9); NEUTROPHILS % (AUTO) 55.1 % (43.0-81.0); PLATELET COUNT (AUTO) 176 /CMM (150-450); RDW COEFFICIENT OF VARIATION 15.8 (11.5-15.0); RED BLOOD CELL COUNT(AUTO) 4.33 MIL/uL (4.5-6.0); WHITE BLOOD COUNT (AUTO) 5.7 K/uL (4.3-11.0)
[2017-04-20 07:43] LABS: CALCIUM, SERUM 8.9 mg/dL (8.5-10.1); CREATININE 1.2 mg/dL (0.6-1.3); MAGNESIUM 1.8 mg/dL (1.8-2.4); POTASSIUM 3.9 mmol/L (3.5-5.1)
[2017-04-20] MEDS: LEVETIRACETAM (250 MG) 250 MG TABLET PO SCH ×2 (08:47→21:00)
[2017-04-20] MEDS: ISOSORBIDE DINITRATE (20MG) 20 MG TABLET PO SCH ×2 (08:48→17:07)
[2017-04-20] MEDS: GABAPENTIN 300 MG CAPSULE PO SCH ×3 (08:48→17:07)
[2017-04-20] MEDS: DOXAZOSIN MESYLATE (4 MG) 4 MG TABLET PO SCH (08:48)
[2017-04-20] MEDS: PANTOPRAZOLE 40 MG TABLET.DR PO SCH (08:49)
[2017-04-20] MEDS: AMLODIPINE BESYLATE 10 MG TABLET PO SCH (08:49)
[2017-04-20] MEDS: DOCUSATE SODIUM 100 MG CAPSULE PO SCH ×2 (08:49→17:07)
[2017-04-20] MEDS: METOPROLOL TARTRATE 50 MG TABLET PO SCH ×2 (08:50→21:00)
[2017-04-20] MEDS: VALSARTAN 80 MG TABLET PO SCH (08:50)
[2017-04-20] MEDS: ENOXAPARIN SODIUM 40 MG/0.4 ML DISP.SYRIN SQ SCH (08:51)
[2017-04-20] MEDS: FLUTICASONE/VILANTEROL 1 EACH BLST.W.DEV IH SCH (09:46)
[2017-04-20] MEDS: oxyCODONE/APAP (5/325 MG) 1 UDTAB TABLET PO PRN (19:03)
[2017-04-20 20:00] VITALS: BP 96/59
[2017-04-20] MEDS: QUETIAPINE FUMARATE 100 MG TABLET PO SCH (22:00)
[2017-04-20] MEDS: clonazePAM 1 MG TABLET PO SCH (22:00)
[2017-04-21] MEDS: hydrALAZINE HCL 50 MG TABLET PO SCH ×3 (04:52→20:43)
[2017-04-21 07:06] LABS: ALBUMIN 2.4 g/dL (3.4-5.0); BILIRUBIN,DIRECT 0.1 mg/dL (0.0-0.2); BILIRUBIN,TOTAL 0.3 mg/dL (0.2-1.0); CALCIUM, SERUM 8.9 mg/dL (8.5-10.1); CREATININE 1.1 mg/dL (0.6-1.3); MAGNESIUM 1.9 mg/dL (1.8-2.4); PHOSPHORUS 2.4 mg/dL (2.5-4.9); TOTAL PROTEIN, SERUM 6.9 g/dL (6.4-8.2)
[2017-04-21] MEDS: LEVETIRACETAM (250 MG) 250 MG TABLET PO SCH ×2 (08:54→20:38)
[2017-04-21] MEDS: DOCUSATE SODIUM 100 MG CAPSULE PO SCH ×2 (08:54→17:23)
[2017-04-21] MEDS: GABAPENTIN 300 MG CAPSULE PO SCH ×3 (08:54→17:23)
[2017-04-21] MEDS: AMLODIPINE BESYLATE 10 MG TABLET PO SCH (08:55)
[2017-04-21] MEDS: ENOXAPARIN SODIUM 40 MG/0.4 ML DISP.SYRIN SQ SCH (08:57)
[2017-04-21] MEDS: ISOSORBIDE DINITRATE (20MG) 20 MG TABLET PO SCH ×2 (09:00→17:22)
[2017-04-21] MEDS: METOPROLOL TARTRATE 50 MG TABLET PO SCH ×2 (09:00→20:39)
[2017-04-21] MEDS: FLUTICASONE/VILANTEROL 1 EACH BLST.W.DEV IH SCH (09:00)
[2017-04-21] MEDS: DOXAZOSIN MESYLATE (4 MG) 4 MG TABLET PO SCH (09:00)
[2017-04-21] MEDS: VALSARTAN 80 MG TABLET PO SCH (09:00)
[2017-04-21] MEDS: PANTOPRAZOLE 40 MG TABLET.DR PO SCH (09:01)
[2017-04-21 09:53] LABS: BASOPHILS % (AUTO) 0.4 % (0.0-2.0); EOSINOPHILS # (AUTO) 0.2 /CMM (0.0-0.7); EOSINOPHILS % (AUTO) 4.1 % (0.0-6.0); HEMATOCRIT 31 % (39-51); HEMOGLOBIN 10.1 g/dL (13.5-17.5); LYMPHOCYTES # (AUTO) 1.2 /CMM (0.8-4.8); LYMPHOCYTES % (AUTO) 19.5 % (20.0-44.0); MEAN CORPUSCULAR HEMOGLOBIN 26 PG (26.0-33.0); MEAN CORPUSCULAR HGB CONC 33 g/dl (31.0-36.0); MEAN CORPUSCULAR VOLUME 79 fL (80-96); MONOCYTES # (AUTO) 0.9 /CMM (0.1-1.30); MONOCYTES % (AUTO) 15.7 % (2.0-12.0); NEUTROPHILS # (AUTO) 3.6 /CMM (1.8-8.9); NEUTROPHILS % (AUTO) 60.3 % (43.0-81.0); PLATELET COUNT (AUTO) 188 /CMM (150-450); RDW COEFFICIENT OF VARIATION 15.9 (11.5-15.0); RED BLOOD CELL COUNT(AUTO) 3.91 MIL/uL (4.5-6.0)
[2017-04-21 10:51] LABS: BAND % (MANUAL) 2 % (0.0-5.0); EOSINOPHILS % (MANUAL) 1 % (0-4); LYMPHOCYTES % (MANUAL) 14 % (16-48); MONOCYTES % (MANUAL) 15 % (0-11.0); NEUTROPHILS % (MANUAL) 68 (42-76)
[2017-04-21] MEDS ORDERED: K PHOS NEUTRAL 250 MG TABLET PO ONE (16:00)
[2017-04-21 20:00] VITALS: BP 113/73
[2017-04-21] MEDS: MUPIROCIN OINT 2% 22 GM TUBE SCH (20:39)
[2017-04-21] MEDS: clonazePAM 1 MG TABLET PO SCH (21:52)
[2017-04-21] MEDS: QUETIAPINE FUMARATE 100 MG TABLET PO SCH (21:52)
[2017-04-22] MEDS: oxyCODONE/APAP (5/325 MG) 1 UDTAB TABLET PO PRN (01:27)
[2017-04-22] MEDS: hydrALAZINE HCL 50 MG TABLET PO SCH ×2 (04:49→13:00)
[2017-04-22 06:54] LABS: CALCIUM, SERUM 8.6 mg/dL (8.5-10.1); CREATININE 1.1 mg/dL (0.6-1.3); PHOSPHORUS 3.3 mg/dL (2.5-4.9); POTASSIUM 3.8 mmol/L (3.5-5.1)
[2017-04-22 08:00] VITALS: BP_SYST 111; BP_SYST 115; BP_DIAS 83; BP_DIAS 85
[2017-04-22] MEDS: METOPROLOL TARTRATE 50 MG TABLET PO SCH (09:00)
[2017-04-22] MEDS: LEVETIRACETAM (250 MG) 250 MG TABLET PO SCH (09:17)
[2017-04-22] MEDS: PANTOPRAZOLE 40 MG TABLET.DR PO SCH (09:17)
[2017-04-22] MEDS: DOCUSATE SODIUM 100 MG CAPSULE PO SCH (09:17)
[2017-04-22] MEDS: GABAPENTIN 300 MG CAPSULE PO SCH ×2 (09:19→13:41)
[2017-04-22] MEDS: ISOSORBIDE DINITRATE (20MG) 20 MG TABLET PO SCH (09:19)
[2017-04-22] MEDS: DOXAZOSIN MESYLATE (4 MG) 4 MG TABLET PO SCH (09:19)
[2017-04-22] MEDS: AMLODIPINE BESYLATE 10 MG TABLET PO SCH (09:20)
[2017-04-22] MEDS: VALSARTAN 80 MG TABLET PO SCH (09:21)
[2017-04-22] MEDS: ENOXAPARIN SODIUM 40 MG/0.4 ML DISP.SYRIN SQ SCH (09:29)
[2017-04-22] MEDS: FLUTICASONE/VILANTEROL 1 EACH BLST.W.DEV IH SCH (09:38)
[2017-04-22] MEDS: MUPIROCIN OINT 2% 22 GM TUBE SCH (09:39)
[2017-04-22 13:00] VITALS: BP 102/68
== END 2017-04-22 15:00 | DRG 551 ==
LOC: ER 19:21 → MED 21:26
PROVIDERS: ADMIT Legal Medicine; ATTEND Legal Medicine
DX: M48.06 Spinal stenosis, lumbar region (principal); G93.40 Encephalopathy, unspecified; N17.0 Acute kidney failure with tubular necrosis; E44.0 Moderate protein-calorie malnutrition; E87.0 Hyperosmolality and hypernatremia; G91.2 (Idiopathic) normal pressure hydrocephalus; F17.210 Nicotine dependence, cigarettes, uncomplicated; I10 Essential (primary) hypertension; J44.9 Chronic obstructive pulmonary disease, unspecified; K21.9 Gastro-esophageal reflux disease without esophagitis; N40.0 Benign prostatic hyperplasia without lower urinary tract symptoms; Z98.2 Presence of cerebrospinal fluid drainage device; D63.8 Anemia in other chronic diseases classified elsewhere; G89.4 Chronic pain syndrome; R74.0 Nonspecific elevation of levels of transaminase and lactic acid dehydrogenase [LDH]; F41.9 Anxiety disorder, unspecified; F32.9 Major depressive disorder, single episode, unspecified
CPT/HCPCS: 36415; 71010-TC; 72131-TC; 80048-TC; 80053-TC; 80076-TC; 83735-TC; 84100-TC; 85025-TC; 85730-TC; 87081-TC; 97001-TC; A4606; J1650; J7030; Z7610

== ENCOUNTER 2017-07-25 09:23 | Emergency (ER) | payer MEDICARE, OTHER ==
[~2017-07-25] VITALS: Ht 170.2 cm; Wt 63.5 kg
[~2017-07-25 09:23] MED LIST changes: +DOCU-25 PO; -FAMO20TA8 PO; +FLUT1BLS IH; +MORP15TA PO; +OXYC-128 PO
--- NOTE | 2017-07-25 09:35 | NUR ---
PT TO ED ROOM 02. BBPA FROM [facility]: NAUSEA, VOMITING SINCE LAST NIGHT ON/OFF. A/A/O x 3. VS WNL. SIDE RAILS UP. HOB ELEVATED. CONNECTED TO MONITOR. L AC G 20 IV STARTED, BLOOD TESTS DRAWN. SEN AND EVALUATED BY ED PROVIDER.
[2017-07-25 09:45] LABS: BASOPHILS % (AUTO) 0.3 % (0.0-2.0); EOSINOPHILS # (AUTO) 0.1 /CMM (0.0-0.7); EOSINOPHILS % (AUTO) 0.9 % (0.0-6.0); HEMATOCRIT 34 % (39-51); HEMOGLOBIN 10.7 g/dL (13.5-17.5); LYMPHOCYTES # (AUTO) 1.1 /CMM (0.8-4.8); LYMPHOCYTES % (AUTO) 12.2 % (20.0-44.0); MEAN CORPUSCULAR HEMOGLOBIN 25 PG (26.0-33.0); MEAN CORPUSCULAR HGB CONC 32 g/dl (31.0-36.0); MEAN CORPUSCULAR VOLUME 79 fL (80-96); MONOCYTES # (AUTO) 1.5 /CMM (0.1-1.30); MONOCYTES % (AUTO) 16.8 % (2.0-12.0); NEUTROPHILS # (AUTO) 6.5 /CMM (1.8-8.9); NEUTROPHILS % (AUTO) 69.8 % (43.0-81.0); PLATELET COUNT (AUTO) 262 /CMM (150-450); RDW COEFFICIENT OF VARIATION 14.9 (11.5-15.0); RED BLOOD CELL COUNT(AUTO) 4.25 MIL/uL (4.5-6.0); WHITE BLOOD COUNT (AUTO) 9.2 K/uL (4.3-11.0)
[2017-07-25] MEDS ORDERED: CLON0.1T PO (09:50)
--- NOTE | 2017-07-25 09:51 | NUR ---
PT UNABLE TO PROVIDE URINE SAMPLE AT THIS TIME. WILL TRY LATER.
[2017-07-25 09:56] LABS: CALCIUM, SERUM 8.7 mg/dL (8.5-10.1); CREATININE 1.4 mg/dL (0.6-1.3)
[2017-07-25 09:59] LABS: INR 1.04 (0.87-1.13); PROTHROMBIN TIME 10.8 SECS (9.5-12.7)
[2017-07-25 10:02] LABS: BILIRUBIN,DIRECT 0.2 mg/dL (0.0-0.2); BILIRUBIN,TOTAL 0.5 mg/dL (0.2-1.0)
[2017-07-25 10:04] LABS: TROPONIN I 0.017 ng/mL (0.00-0.056)
--- NOTE | 2017-07-25 10:35 | NUR ---
MO IS STILL UNABLE TO PROVIDE URINE SAMPLE. REFUSES IN/OUT HERCULES CATHETER.
--- NOTE | 2017-07-25 10:57 | NUR ---
dr de la fuente paged
--- NOTE | 2017-07-25 11:16 | NUR ---
bryn called [phone] eta 1 min. trip # [id number]
[2017-07-25 11:29] VITALS: BP 125/71
[2017-07-25 11:42] LABS: EOSINOPHILS % (MANUAL) 1 % (0-4); LYMPHOCYTES % (MANUAL) 11 % (16-48); MONOCYTES % (MANUAL) 15 % (0-11.0); NEUTROPHILS % (MANUAL) 73 (42-76)
== END 2017-07-25 11:31 | disposition home or self-care (01) ==
LOC: ER 09:28
DX: R11.2 Nausea with vomiting, unspecified (principal); E78.00 Pure hypercholesterolemia, unspecified; F41.9 Anxiety disorder, unspecified; I10 Essential (primary) hypertension; I42.9 Cardiomyopathy, unspecified; K21.9 Gastro-esophageal reflux disease without esophagitis; N28.1 Cyst of kidney, acquired; Z98.2 Presence of cerebrospinal fluid drainage device
CPT/HCPCS: 36415; 74176; 80048; 80076; 83690; 84484; 85025; 85730; 87081; 93005; 96361; 96374; 99285; A4606; J2405; J7030; Z7610

== ENCOUNTER 2017-09-20 16:36 | Inpatient (IN) | payer MEDICARE, OTHER ==
[~2017-09-20] VITALS: Ht 167.6 cm; Wt 56.2 kg
[~2017-09-20 16:36] MED LIST changes: +CLON0.1T PO; -FLUT1DIS3 IH
--- NOTE | 2017-09-20 16:40 | NUR ---
XENIA RAHMAN FROM [facility] C/O N/V X3 TODAY LAST PO INTAKE LAST NIGHT. A/OX 4. BREATHING EVEN AND UNLABORED. NO SOB. BREATHING EVEN AND UNLABORED. NO SOB. VITALS STABLE. SAFETY AND COMFORT MEASURES IN PLACE. AWAITING MD ORDERS.
--- NOTE | 2017-09-20 16:45 | NUR ---
NEW IV STARTED ON LAC, 18 G. BLOOD DRAWN AND SENT TO LAB.
[2017-09-20] MEDS ORDERED: ONDANSETRON HCL/PF 4 MG/2 ML VIAL IVP ONE (17:00)
[2017-09-20] MEDS ORDERED: IV NS 0.9% 1,000 ML BAG IV ONE ×2 (17:00→18:30)
[2017-09-20] MEDS ORDERED: ONDANSETRON HCL/PF 4 MG/2 ML VIAL ONE (17:12)
[2017-09-20 17:15] LABS: HEMOGLOBIN 10.6 g/dL (13.5-17.5)
--- NOTE | 2017-09-20 17:15 | NUR ---
PATIENT MEDICATED PER MD ORDERS.
[2017-09-20 17:17] LABS: BASOPHILS # (AUTO) 0.2 /CMM (0.0-0.2); BASOPHILS % (AUTO) 2.2 % (0.0-2.0); EOSINOPHILS # (AUTO) 0.1 /CMM (0.0-0.7); EOSINOPHILS % (AUTO) 0.6 % (0.0-6.0); HEMATOCRIT 32 % (39-51); LYMPHOCYTES # (AUTO) 1.2 /CMM (0.8-4.8); LYMPHOCYTES % (AUTO) 10.6 % (20.0-44.0); MEAN CORPUSCULAR HEMOGLOBIN 26 PG (26.0-33.0); MEAN CORPUSCULAR HGB CONC 33 g/dl (31.0-36.0); MEAN CORPUSCULAR VOLUME 78 fL (80-96); MONOCYTES # (AUTO) 1.8 /CMM (0.1-1.30); MONOCYTES % (AUTO) 16.6 % (2.0-12.0); NEUTROPHILS # (AUTO) 7.6 /CMM (1.8-8.9); PLATELET COUNT (AUTO) 248 /CMM (150-450); RED BLOOD CELL COUNT(AUTO) 4.14 MIL/uL (4.5-6.0); WHITE BLOOD COUNT (AUTO) 10.9 K/uL (4.3-11.0)
[2017-09-20 17:24] LABS: CALCIUM, SERUM 9.4 mg/dL (8.5-10.1); CREATININE 1.3 mg/dL (0.6-1.3); POTASSIUM 3.7 mmol/L (3.5-5.1)
[2017-09-20 17:29] LABS: INR 1.08 (0.87-1.13); PROTHROMBIN TIME 11.2 SECS (9.5-12.7)
[2017-09-20 17:30] LABS: ALBUMIN 3.1 g/dL (3.4-5.0); BILIRUBIN,DIRECT 0.3 mg/dL (0.0-0.2); BILIRUBIN,TOTAL 0.6 mg/dL (0.2-1.0); TOTAL PROTEIN, SERUM 8.7 g/dL (6.4-8.2)
[2017-09-20 17:33] LABS: TROPONIN I 0.018 ng/mL (0.00-0.056)
--- NOTE | 2017-09-20 19:14 | NUR ---
REPORT GIVEN TO LEIDY PARIS FOR STEFANY.
--- NOTE | 2017-09-20 19:18 | NUR ---
REPORT RECEIVED FROM [place] FOR STEFANY.
[2017-09-20] MEDS ORDERED: IV NS 0.9% 250 ML IV ONE (19:45)
[2017-09-20] MEDS ORDERED: IOHEXOL-300 100 ML VIAL IV ONE (19:45)
--- NOTE | 2017-09-20 19:56 | NUR ---
PT TO CT VIA STRETCHER. VSS.
--- NOTE | 2017-09-20 20:06 | NUR ---
PT BACK FROM CT.
[2017-09-20] MEDS ORDERED: OLANZAPINE 10 MG VIAL IM ONE ×2 (21:20→21:30)
--- NOTE | 2017-09-20 21:34 | NUR ---
CALLED [facility] ANSWERING SERVICE, LEFT VOICEMAIL.
--- NOTE | 2017-09-20 22:05 | NUR ---
REPORT CALLED TO HARPER FOR STEFANY.
--- NOTE | 2017-09-20 22:14 | NUR ---
EMT AT BEDSIDE FOR EKG.
--- NOTE | 2017-09-20 22:18 | NUR ---
CALLED [facility] ANSWERING SERVICE, LEFT VOICEMAIL.
--- NOTE | 2017-09-20 22:22 | NUR ---
PT CHANGED TO A TELE BED.
--- NOTE | 2017-09-20 22:30 | NUR ---
PT TO TELE 316-2 VIA STRETCHER WITH RN, PER ACLS PROTOCOL.
--- NOTE | 2017-09-20 22:35 | NUR ---
ADMISSION NOTES RECEIVED PATIENT FROM ER VIA GURNEY WITH C/O N/V & ABDOMINAL PAIN. A & O X 4, WITH AGITATED BEHAVIOR (PER ER NURSE). ON TELE MONITORING WITH SINUS TACHYCARDIA. NO SOB, NO OTHER ACUTE CHANGES NOTED. IV ACCESS TO LAC, INTACT PATENT. AMBULATORY WITH ASSIST BUT HAS WEAKNESS. ALL BELONGINGS ACCOUNTED FOR & DOCUMENTED BY GAS LINE REPAIRER. ALL CURRENT ORDERS REVIEWED WITH MD, NOTED & CARRIED OUT. SAFETY MEASURES IN PLACE. BED ALARM ON & IN LOW LOCKED POSITION. CALL LIGHT WITHIN REACH. WILL OBSERVE CLOSELY.
[2017-09-20 23:30] VITALS: BP 141/97
[2017-09-21] VITALS (7 sets, daily range): BP systolic 116–143; BP diastolic 75–85
--- NOTE | 2017-09-21 00:20 | NUR ---
NORCO ORDER RECEIVED PAGED MD TO IN FORM THAT PT IS C/O GENERALIZED BODY ACHE, MORPHINE & DILAUDID IS OUT OF STOCK, PT DOESN'T WANT TO TAKE MORPHINE EITHER. HE ONLY WANTS TO TAKE NORCO FOR PAIN. NOTED TO BE AGITATED. NPO DUE TO N/V. NO C/O ABDOMINAL PAIN @ THIS TIME. AFTER REVIEWING THE LABS, ORDERED TO GIVE NORCO PO WITH SIP OF WATER. ORDER NOTED & CARRIED OUT. WILL OBSERVE THE PT VERY CLOSELY FOR STEFANY.
[2017-09-21] MEDS ORDERED: IV D5/ 0.9% NACL 1,000 ML IV ONE (00:30)
[2017-09-21] MEDS ORDERED: HYDROCODONE/APAP 5/325MG 1 EACH TABLET ONE ×2 (00:36→08:26)
[2017-09-21] MEDS: HYDROCODONE/APAP 5/325MG 1 EACH TABLET PO PRN ×2 (00:43→08:44)
--- NOTE | 2017-09-21 00:43 | NUR ---
PRN NORCO GIVEN PRN NORCO GIVEN TO THE PT WITH SIP OF WATER, PT THANKED & SEEMED TO BE HAPPY AFTER TAKING THE NORCO. WILL OBSERVE FOR ANY CHANGES.
[2017-09-21] MEDS ORDERED: ONDANSETRON HCL/PF 4 MG/2 ML VIAL ONE (03:36)
[2017-09-21] MEDS: ONDANSETRON HCL/PF 4 MG/2 ML VIAL IV PRN ×3 (03:42→16:06)
--- NOTE | 2017-09-21 03:42 | NUR ---
PRN ZOFRAN GIVEN PATIENT NOTED WITH X 2 MEDIUM AMOUNT OF VOMITING, PRN ZOFRAN GIVEN ORDERED. CONTINUING TO MONITOR CLOSELY.
[2017-09-21 06:22] LABS: BASOPHILS % (AUTO) 0.2 % (0.0-2.0); HEMATOCRIT 32 % (39-51); HEMOGLOBIN 10.4 g/dL (13.5-17.5); LYMPHOCYTES # (AUTO) 0.9 /CMM (0.8-4.8); LYMPHOCYTES % (AUTO) 7.3 % (20.0-44.0); MEAN CORPUSCULAR HEMOGLOBIN 25 PG (26.0-33.0); MEAN CORPUSCULAR HGB CONC 33 g/dl (31.0-36.0); MEAN CORPUSCULAR VOLUME 78 fL (80-96); MONOCYTES # (AUTO) 2.1 /CMM (0.1-1.30); MONOCYTES % (AUTO) 16.8 % (2.0-12.0); NEUTROPHILS # (AUTO) 9.4 /CMM (1.8-8.9); NEUTROPHILS % (AUTO) 75.7 % (43.0-81.0); PLATELET COUNT (AUTO) 288 /CMM (150-450); RDW COEFFICIENT OF VARIATION 16.4 (11.5-15.0); RED BLOOD CELL COUNT(AUTO) 4.09 MIL/uL (4.5-6.0); WHITE BLOOD COUNT (AUTO) 12.4 K/uL (4.3-11.0)
--- NOTE | 2017-09-21 06:35 | NUR ---
ETIQUETTE COACH CLOSING NOTES PATIENT RESTING IN BED, AWAKE, SLEPT INTERMITTENTLY @ NIGHT, WATCHING TV. A & O X 4. ABLE TO MAKE NEEDS KNOWN. X I SMALL EPISODE OF VOMITING NOTED AFTER GIVING ZOFRAN. ON TELE MONITORING WITH SINUS TACHYCARDIA. MD AWARE. IV ACCESS TO LAC, INTACT PATENT RUNNING WITH D5NS @ 100 ML/HR. SAFETY MEASURES IN PLACE. BED IN LOW LOCKED POSITION. CALL LIGHT WITHIN REACH. WILL ENDORSE TO AM RN FOR CONTINUITY OF CARE.
[2017-09-21 06:51] LABS: ALBUMIN 2.9 g/dL (3.4-5.0); BILIRUBIN,TOTAL 0.4 mg/dL (0.2-1.0); TOTAL PROTEIN, SERUM 8.2 g/dL (6.4-8.2)
[2017-09-21 06:55] LABS: CALCIUM, SERUM 9.2 mg/dL (8.5-10.1); CREATININE 1.2 mg/dL (0.6-1.3); POTASSIUM 2.9 mmol/L (3.5-5.1)
--- NOTE | 2017-09-21 07:18 | NUR ---
RN NOTES PT IS LAYING DOWN IN BED, COMPLAINING OF NAUSEA. PT ON RA, RESPIRATIONS ARE EVEN AND UNLABORED. IV ON LAC INTACT AND RUNNING D5NS @ 75ML/HR. SAFETY MEASURES ARE IN PLACE, CALL LIGHT IS IN REACH. WILL CONTINUE TO MONITOR
[2017-09-21] MEDS ORDERED: ONDA4TAB8 SL (07:30)
[2017-09-21] MEDS ORDERED: HYDR-552 PO (07:30)
[2017-09-21] MEDS ORDERED: LORAZEPAM 1 MG TABLET ONE (08:26)
[2017-09-21] MEDS ORDERED: LORAZEPAM INJ 2 MG/ML VIAL ONE (08:40)
[2017-09-21] MEDS: LORAZEPAM INJ 2 MG/ML VIAL IV PRN (08:44)
[2017-09-21 09:01] LABS: LYMPHOCYTES % (MANUAL) 13 % (16-48); MONOCYTES % (MANUAL) 12 % (0-11.0); NEUTROPHILS % (MANUAL) 75 (42-76)
--- NOTE | 2017-09-21 09:24 | NUR ---
RN NOTES ATIVAN 1MG WAS WASTED WITH MYKEL PARIS WITNESS, PER MD ORDERED DOSE.
[2017-09-21] MEDS: PANTOPRAZOLE 40 MG VIAL IV SCH (09:37)
--- NOTE | 2017-09-21 09:40 | NUR ---
RN NOTES ORDERED DOSES OF ATIVAN, NORCO, AND ZOFRAN WERE GIVEN THIS MORNING. NO NEED FOR ONE TIME DOSE ORDERED IN E DEC.
--- NOTE | 2017-09-21 10:33 | NUR ---
RN NOTES TELE-MONITOR SHOWS HEART RATE GOING IN THE 130'S AND CONSISTENTLY STAYS IN THE 120'S. DR. CELESTE WAS NOTIFIED.
[2017-09-21] MEDS ORDERED: CLONIDINE HCL 0.1 MG TABLET PO PRN (11:00)
[2017-09-21] MEDS: VALSARTAN 80 MG TABLET PO SCH (11:00)
[2017-09-21] MEDS: DOCUSATE SODIUM 100 MG CAPSULE PO SCH ×2 (11:00→16:02)
[2017-09-21] MEDS: METOPROLOL TARTRATE 50 MG TABLET PO SCH ×2 (11:00→21:23)
[2017-09-21] MEDS ORDERED: HYDROCODONE/APAP 5/325MG 1 EACH TABLET PO PRN (11:00)
[2017-09-21] MEDS ORDERED: Z GUARD REMEDY 2 OZ OINT TP PRN (11:00)
--- NOTE | 2017-09-21 11:19 | NUR ---
CT GUIDED NEEDLE BIOPSY OF LIVER MASS TO BE DONE 09/23/17 AT 10:30 PENDING CONSENTS FOR PROCEDURE AND MODERATE SEDATION. RN WILL CALL BACK WHEN CONSENTS HAVE BEEN OBTAINED. PT. TO BE NPO AFTER MIDNIGHT PRIOR TO BIOPSY. NURSING CONTINUOUS IMPROVEMENT FACILITATOR AND PATHOLOGY AWARE.
[2017-09-21] MEDS: DOXAZOSIN MESYLATE (4 MG) 4 MG TABLET PO SCH (11:39)
[2017-09-21] MEDS: LEVETIRACETAM (250 MG) 250 MG TABLET PO SCH ×2 (11:40→21:23)
[2017-09-21] MEDS: POTASSIUM CHLORIDE 20 MEQ TAB.PRT.SR PO SCH ×3 (11:40→12:48)
[2017-09-21] MEDS: GABAPENTIN 300 MG CAPSULE PO SCH ×2 (12:25→16:06)
[2017-09-21] MEDS: AMLODIPINE BESYLATE 10 MG TABLET PO SCH (12:27)
[2017-09-21] MEDS: FLUTICASONE/VILANTEROL 1 EACH BLST.W.DEV IH SCH (12:48)
[2017-09-21] MEDS: hydrALAZINE HCL 50 MG TABLET PO SCH ×2 (12:48→21:22)
[2017-09-21] MEDS: ISOSORBIDE DINITRATE (20MG) 20 MG TABLET PO SCH (16:06)
--- NOTE | 2017-09-21 18:52 | NUR ---
RN NOTES PT IS RESTING COMFORTABLY IN BED. PT ON RA, RESPIRATIONS ARE EVEN AND UNLABORED. IV ON LAC INTACT AND PATENT. ALL MEDS WERE GIVEN ORDERED. PT NEEDS MET, SKIN CARE PROVIDED. SAFETY MEASURES ARE IN PLACE, CALL LIGHT IS IN REACH. WILL ENDORSE TO GOODWILL AMBASSADOR RN FOR CONTINUITY OF CARE.
--- NOTE | 2017-09-21 19:30 | NUR ---
MS RN INITIAL NOTES RECEIVED PT IN BED, AWAKE,ALERT,VERBALLY RESPONSIVE,ON ROOM AIR, NO SOB,NO APPARENT DISTRESS NOTED.IV SITE LAC INTACT, PATENT,NO S/SX OF INFILTRATION NOTED. DENIES ANY PAIN OR DISCOMFORT,NO EPISODE OF N/V NOTED AT THIS TIME. KEPT CLEAN AND COMFORTABLE,ATTENDED ALL NEEDS,CALL LIGHT WITHIN REACH.WILL CONTINUE TO MONITOR ACCORDINGLY.
[2017-09-21] MEDS: QUETIAPINE FUMARATE 100 MG TABLET PO SCH ×2 (21:22→22:00)
[2017-09-21] MEDS: clonazePAM 1 MG TABLET PO SCH ×2 (21:23→22:00)
--- NOTE | 2017-09-21 22:10 | NUR ---
MS RN NOTES CLONOPIN 0.5MG AND SEROQUEL 100MG NOT ADMINISTERED ,PT IS TOO SLEEPY.
--- NOTE | 2017-09-21 23:00 | NUR ---
MS PARIS NOTES SINUS TACHYCARDIA 95. WILL CONTINUE TO MONITOR Addendum: 09/22/17 at 0311 by BIRD MELLO RN SR HR-[id number]
[2017-09-22] VITALS (8 sets, daily range): BP systolic 111–120; BP diastolic 67–80
[2017-09-22] MEDS: hydrALAZINE HCL 50 MG TABLET PO SCH ×3 (04:35→21:19)
--- NOTE | 2017-09-22 06:15 | NUR ---
MS RN CLOSING NOTES PT IN BED AWAKE,,VERBALLY RESPONSIVE,ON ROOM AIR,NO SOB NOTED,DENIES ANY PAIN OR DISCOMFORT AT THIS TIME. NO EPISODE OF N/V NOTED MONITORED FREQUENTLY. KEPT CLEAN AND COMFORTABLE,ATTENDED ALL NEEDS.WILL MONITOR ACCORDINGLY
--- NOTE | 2017-09-22 07:15 | NUR ---
ORTHOTIC/PROSTHETIC PRACTITIONER OPENING NOTES RECEIVED PT FROM NIGHTSHIFT NURSE IN STABLE CONDITION. PT IS A/O X3. NO SOB OR SIGNS OF DISTRESS NOTED. BREATHING IS EVEN AND UNLABORED. PT DENIES ANT PAIN AT THIS TIME. HE IS SINUS TACH ON THE TELE MONITOR WITH A HR OF 107. IV NOTED TO BE PATENT AND INTACT. NO REDNESS OR SIGNS OF INFILTRATION NOTED. BED IN LOW LOCKED POSITION, SIDE RAILS UP X2, CALL LIGHT WITHIN REACH. WILL CONTINUE TO MONITOR
[2017-09-22 07:49] LABS: CALCIUM, SERUM 9.1 mg/dL (8.5-10.1); CREATININE 1.1 mg/dL (0.6-1.3); POTASSIUM 3.5 mmol/L (3.5-5.1)
[2017-09-22] MEDS: PANTOPRAZOLE 40 MG VIAL IV SCH (08:26)
[2017-09-22] MEDS: LEVETIRACETAM (250 MG) 250 MG TABLET PO SCH ×2 (08:26→20:04)
[2017-09-22] MEDS: GABAPENTIN 300 MG CAPSULE PO SCH ×3 (08:26→17:40)
[2017-09-22] MEDS: DOCUSATE SODIUM 100 MG CAPSULE PO SCH ×2 (08:26→17:00)
[2017-09-22] MEDS: FLUTICASONE/VILANTEROL 1 EACH BLST.W.DEV IH SCH (08:26)
[2017-09-22] MEDS: METOPROLOL TARTRATE 50 MG TABLET PO SCH ×2 (08:27→20:04)
[2017-09-22] MEDS: DOXAZOSIN MESYLATE (4 MG) 4 MG TABLET PO SCH (08:27)
[2017-09-22] MEDS: AMLODIPINE BESYLATE 10 MG TABLET PO SCH (09:00)
[2017-09-22] MEDS: ISOSORBIDE DINITRATE (20MG) 20 MG TABLET PO SCH ×2 (09:00→17:40)
[2017-09-22] MEDS: VALSARTAN 80 MG TABLET PO SCH (09:00)
--- NOTE | 2017-09-22 18:59 | NUR ---
PLASTIC TUBING INSULATION SUPERVISOR CLOSING NOTES PT REMAINS IN STABLE CONDITION. ALL NEEDS MET DURING SHIFT AND ORDERS CARRIED OUT ACCORDINGLY. ALL DUE MEDS GIVEN. SAFETY MEASURES REMAIN IN PLACE. WILL ENDORSE TO NIGHTSHIFT NURSE FOR STEFANY
--- NOTE | 2017-09-22 19:30 | NUR ---
MS RN INITIAL NOTES RECEIVED PT IN BED AWAKE,ALERT,VERBALLY RESPONSIVE, ON ROOM AIR,NO SOB NOTED, RESPIRATIONS EVEN, UNLABORED,NO APPARENT DISTRESS NOTED. SINUS RHYTHM, TACHYCARDIA 103. IV SITE LAC INTACT, PATENT, NO S/SX OF INFILTRATION NOTED. ATTENDED ALL NEEDS.CALL LIGHT WITHIN REACH. WILL CONTINUE TO MONITOR ACCORDINGLY.
[2017-09-22] MEDS: QUETIAPINE FUMARATE 100 MG TABLET PO SCH (22:00)
[2017-09-22] MEDS: clonazePAM 1 MG TABLET PO SCH (22:00)
--- NOTE | 2017-09-22 22:19 | NUR ---
MS RN NOTES KLONOPIN 0.5MG AND SEROQUEL 100MG NOT ADMINISTERED DUE TO PT TOO SLEEPY. WILL MONITOR.
[2017-09-23] VITALS (7 sets, daily range): BP systolic 107–127; BP diastolic 70–79
[2017-09-23] MEDS: hydrALAZINE HCL 50 MG TABLET PO SCH ×3 (04:26→21:02)
--- NOTE | 2017-09-23 07:20 | NUR ---
MS RN OPENING NOTES RECEIVED PT FROM NIGHTSHIFT NURSE IN STABLE CONDITION. PT IS A/O X3. NO SOB OR SIGNS OF DISTRESS NOTED. BREATHING IS EVEN AND UNLABORED. PT DENIES ANT PAIN AT THIS TIME. H IV NOTED TO BE PATENT AND INTACT. NO REDNESS OR SIGNS OF INFILTRATION NOTED. BED IN LOW LOCKED POSITION, SIDE RAILS UP X2, CALL LIGHT WITHIN REACH. WILL CONTINUE TO MONITOR
--- NOTE | 2017-09-23 07:21 | NUR ---
MS RN NOTS PT IN BED, AWAKE, RESPONSIVE, ON ROOM AIR,DENIES ANY DISCOMFORT.CALL LIGHT WITHIN REACH. WILL MONITOR ACCORDINGLY
[2017-09-23] MEDS: DOCUSATE SODIUM 100 MG CAPSULE PO SCH ×2 (09:00→17:00)
[2017-09-23] MEDS: DOXAZOSIN MESYLATE (4 MG) 4 MG TABLET PO SCH (09:00)
[2017-09-23] MEDS: VALSARTAN 80 MG TABLET PO SCH (09:00)
[2017-09-23] MEDS: METOPROLOL TARTRATE 50 MG TABLET PO SCH ×2 (09:00→21:03)
[2017-09-23] MEDS: AMLODIPINE BESYLATE 10 MG TABLET PO SCH (09:00)
[2017-09-23] MEDS: ISOSORBIDE DINITRATE (20MG) 20 MG TABLET PO SCH ×2 (09:00→16:59)
[2017-09-23] MEDS ORDERED: IV NS 0.9% 250 ML IV ONE (09:17)
[2017-09-23] MEDS ORDERED: CT SWABBABLE VALVE TRANS SET 1 EA INFUS.SET MC ONE (09:17)
[2017-09-23] MEDS ORDERED: IOHEXOL-350 100 ML VIAL IV ONE (09:17)
[2017-09-23] MEDS: LEVETIRACETAM (250 MG) 250 MG TABLET PO SCH ×2 (10:26→21:02)
[2017-09-23] MEDS: PANTOPRAZOLE 40 MG VIAL IV SCH (10:26)
[2017-09-23] MEDS: GABAPENTIN 300 MG CAPSULE PO SCH ×3 (10:26→16:59)
[2017-09-23] MEDS: FLUTICASONE/VILANTEROL 1 EACH BLST.W.DEV IH SCH (10:26)
[2017-09-23] MEDS: HYDROCODONE/APAP 5/325MG 1 EACH TABLET PO PRN ×3 (12:33→21:07)
[2017-09-23] MEDS: ACETAMINOPHEN 650 MG/SUPP.RECT RC PRN (17:05)
--- NOTE | 2017-09-23 19:02 | NUR ---
MS RN CLOSING NOTES PT REMAINS IN STABLE CONDITION. ALL NEEDS MET DURING SHIFT AND ORDERS CARRIED OUT ACCORDINGLY. ALL DUE MEDS GIVEN. SAFETY MEASURES REMAIN IN PLACE. WILL ENDORSE TO NIGHTSHIFT NURSE FOR STEFANY
[2017-09-23] MEDS: QUETIAPINE FUMARATE 100 MG TABLET PO SCH (22:00)
[2017-09-23] MEDS: clonazePAM 1 MG TABLET PO SCH (22:00)
[2017-09-24] MEDS: hydrALAZINE HCL 50 MG TABLET PO SCH ×3 (05:00→21:46)
--- NOTE | 2017-09-24 07:30 | NUR ---
RN NOTES RECEIVED PT. IN BED ALERT AND OX4. BREATHING UNLABORED, AND EVENLY ON ROOM AIR. NO S/S OF ACUTE DISTRESS. PT. IS NPO FOR CT GUIDED BIOPSY TEST. IV ON LEFT ANTECUBITAL SITE IS INTACT AND PATENT WITH SALINE FLUSH. BED IS IN LOWEST, AND LOCKED POSITION. BED ALARM ON. INSTRUCTED PT. TO USE CALL LIGHT FOR ASSISTANCE. ALL NEEDS MET AT THIS TIME.
[2017-09-24 08:00] VITALS: BP 126/80
[2017-09-24] MEDS: PANTOPRAZOLE 40 MG VIAL IV SCH (08:54)
[2017-09-24] MEDS: FLUTICASONE/VILANTEROL 1 EACH BLST.W.DEV IH SCH (08:54)
[2017-09-24] MEDS: DOCUSATE SODIUM 100 MG CAPSULE PO SCH ×3 (09:00→16:56)
[2017-09-24] MEDS: GABAPENTIN 300 MG CAPSULE PO SCH ×3 (09:12→16:53)
[2017-09-24] MEDS: LEVETIRACETAM (250 MG) 250 MG TABLET PO SCH ×2 (09:12→21:46)
[2017-09-24] MEDS: METOPROLOL TARTRATE 50 MG TABLET PO SCH ×2 (09:13→21:45)
[2017-09-24] MEDS: DOXAZOSIN MESYLATE (4 MG) 4 MG TABLET PO SCH (09:13)
[2017-09-24] MEDS: VALSARTAN 80 MG TABLET PO SCH (09:14)
[2017-09-24] MEDS: AMLODIPINE BESYLATE 10 MG TABLET PO SCH (09:14)
[2017-09-24] MEDS: ISOSORBIDE DINITRATE (20MG) 20 MG TABLET PO SCH ×2 (09:14→16:53)
[2017-09-24] MEDS: HYDROCODONE/APAP 5/325MG 1 EACH TABLET PO PRN ×2 (09:23→16:39)
--- NOTE | 2017-09-24 11:00 | NUR ---
RN NOTES PT. WAS PLACED ON CONTACT ISOLATION DUE TO A MICROBIOLOGY REPORT PT. TESTED POSITIVE FOR C DIFF. CHARGE NURSE WAS INFORMED.
--- NOTE | 2017-09-24 11:09 | NUR ---
RN NOTES RADIOLOGY CANCELLED PT.'S CT GUIDED BIOPSY FOR TODAY AND RESCHEDULED IT FOR TOMORROW AT 1000, WAS NOTIFIED.
[2017-09-24] MEDS: LORAZEPAM INJ 2 MG/ML VIAL IV PRN (15:59)
[2017-09-24 16:00] VITALS: BP 122/67
--- NOTE | 2017-09-24 19:35 | NUR ---
RN CLOSING NOTES PT. IN BED ALERT AND OX4. BREATHING UNLABORED, AND EVENLY ON ROOM AIR. NO S/S OF ACUTE DISTRESS. ENDORSED PT. IS NPO AFTER MIDNIGHT FOR RESCHEDULED GUIDED NEEDLE BIOPSY AT 1000 TOMORROW. IV ON LEFT ANTECUBITAL SITE IS INTACT AND PATENT WITH SALINE FLUSH. BED IS IN LOWEST, AND LOCKED POSITION. BED ALARM ON. INSTRUCTED PT. TO USE CALL LIGHT FOR ASSISTANCE. ALL NEEDS MET AT THIS TIME.
--- NOTE | 2017-09-24 19:40 | NUR ---
MS/RN NOTES RECEIVED PT. LYING IN BED RESTING. PT. IS EASILY AROUSABLE TO NAME. AWAKE, ALERT AND ORIENTED X4. BREATHING EVEN AND UNLABORED ON ROOM AIR. NO SOB, RESPIRATORY DISTRESS OR COMPLAINTS OF PAIN NOTED AT THIS TIME. PT. WITH LEFT AC SALINE LOCK PRESENT, PATENT AND INTACT. CONTACT PRECAUTIONS IMPLEMENTED AND IN PLACE. PER DAYSHIFT NURSE PT. WILL BE NPO AT MIDNIGHT PENDING CT GUIDED BIOPSY TOMORROW, SCHEDULED FOR 1000. BED LOCKED AND IN LOWEST POSITION, SIDE RAILS UP X2, BED ALARM ON, CALL LIGHT WITHIN REACH, WILL CONTINUE TO MONITOR.
[2017-09-24 20:00] VITALS: BP 115/73
[2017-09-24] MEDS: clonazePAM 1 MG TABLET PO SCH (22:00)
[2017-09-24] MEDS: QUETIAPINE FUMARATE 100 MG TABLET PO SCH (22:00)
[2017-09-25] MEDS: hydrALAZINE HCL 50 MG TABLET PO SCH ×4 (05:00→12:55)
--- NOTE | 2017-09-25 07:00 | NUR ---
MS/RN NOTES PT. IS LYING IN BED RESTING. BREATHING EVEN AND UNLABORED ON ROOM AIR. NO SOB, RESPIRATORY DISTRESS OR COMPLAINTS OF PAIN NOTED AT THIS TIME. PT. WITH LEFT AC SALINE LOCK PRESENT, PATENT AND INTACT. CONTACT PRECAUTIONS IMPLEMENTED AND IN PLACE. PT. HAS BEEN NPO AFTER MIDNIGHT PENDING CT GUIDED BIOPSY TODAY, SCHEDULED FOR 1000. ALL PT. NEEDS MET. ALL DUE MEDICATIONS GIVEN. BED LOCKED AND IN LOWEST POSITION, SIDE RAILS UP X2, BED ALARM ON, CALL LIGHT WITHIN REACH, WILL ENDORSE TO DAYSHIFT NURSE FOR CONTINUITY OF CARE.
[2017-09-25 08:00] VITALS: BP 136/81
[2017-09-25] MEDS: METOPROLOL TARTRATE 50 MG TABLET PO SCH ×2 (09:00→20:36)
[2017-09-25] MEDS: FLUTICASONE/VILANTEROL 1 EACH BLST.W.DEV IH SCH (09:00)
[2017-09-25] MEDS: DOCUSATE SODIUM 100 MG CAPSULE PO SCH ×2 (09:00→17:00)
[2017-09-25] MEDS ORDERED: NALOXONE HCL 0.4 MG/ML AMPUL IV PRN (11:00)
[2017-09-25] MEDS ORDERED: FENTANYL PF 250MCG/5ML AMPUL IV PRN (11:00)
[2017-09-25] MEDS ORDERED: MIDAZOLAM HCL 2 MG/2ML VIAL IV PRN (11:00)
[2017-09-25] MEDS: GABAPENTIN 300 MG CAPSULE PO SCH ×3 (12:55→17:00)
[2017-09-25] MEDS: LEVETIRACETAM (250 MG) 250 MG TABLET PO SCH ×2 (12:56→20:35)
[2017-09-25] MEDS: AMLODIPINE BESYLATE 10 MG TABLET PO SCH (12:56)
[2017-09-25] MEDS: DOXAZOSIN MESYLATE (4 MG) 4 MG TABLET PO SCH (12:56)
[2017-09-25] MEDS: VALSARTAN 80 MG TABLET PO SCH (12:56)
[2017-09-25] MEDS: ACETAMINOPHEN 650 MG/SUPP.RECT RC PRN (12:57)
[2017-09-25] MEDS: ISOSORBIDE DINITRATE (20MG) 20 MG TABLET PO SCH ×2 (12:57→17:00)
[2017-09-25] MEDS: PANTOPRAZOLE 40 MG VIAL IV SCH (12:57)
[2017-09-25 13:50] VITALS: BP 91/51
[2017-09-25] MEDS: HYDROCODONE/APAP 5/325MG 1 EACH TABLET PO PRN ×2 (15:32→21:25)
[2017-09-25 16:00] VITALS: BP 102/77
[2017-09-25 16:43] VITALS: BP 92/65
--- NOTE | 2017-09-25 18:47 | NUR ---
Patient request for pain medication. Will endorse to noc shift prn order.
[2017-09-25 20:00] VITALS: BP_SYST 101; BP_SYST 110; BP_DIAS 67
--- NOTE | 2017-09-25 20:00 | NUR ---
RN NOTES RECEIVED PT AWAKE ON BED, A/OX3, WATCHING TV, DENIES PAIN AT THIS TIME, NO SOB, CALL LIGHT WITHIN REACH, SIDERAILS UPX2 CONTINUE TO MONITOR
--- NOTE | 2017-09-25 21:27 | NUR ---
RN NOTES COMPLAINED OF TERRIBLE HEADACHE AND GENERALIZED PAIN- NORCO 5/325 MG PO GIVEN ORDERED, V/S STABLE
[2017-09-25] MEDS: clonazePAM 1 MG TABLET PO SCH (22:00)
[2017-09-25] MEDS: QUETIAPINE FUMARATE 100 MG TABLET PO SCH (22:47)
[2017-09-26] MEDS: hydrALAZINE HCL 50 MG TABLET PO SCH ×3 (06:24→21:00)
[2017-09-26] MEDS: HYDROCODONE/APAP 5/325MG 1 EACH TABLET PO PRN ×3 (06:51→19:48)
--- NOTE | 2017-09-26 06:53 | NUR ---
RN NOTES COMPLAINED OF BACK PAIN- NORCO 5/325 MG PO GIVEN ORDERED, V/S STABLE
--- NOTE | 2017-09-26 06:54 | NUR ---
RN NOTES AWAKE, MORNING CARE RENDERED, CALL LIGHT WITHIN REACH, SIDERAILS UPX2 PT. NEEDS ATTENDED
[2017-09-26 08:00] VITALS: BP 96/62
[2017-09-26] MEDS: LEVETIRACETAM (250 MG) 250 MG TABLET PO SCH ×2 (09:34→21:57)
[2017-09-26] MEDS: FLUTICASONE/VILANTEROL 1 EACH BLST.W.DEV IH SCH (09:34)
[2017-09-26] MEDS: PANTOPRAZOLE 40 MG VIAL IV SCH (09:34)
[2017-09-26] MEDS: DOCUSATE SODIUM 100 MG CAPSULE PO SCH ×2 (09:34→17:56)
[2017-09-26] MEDS: ISOSORBIDE DINITRATE (20MG) 20 MG TABLET PO SCH ×2 (09:35→17:59)
[2017-09-26] MEDS: AMLODIPINE BESYLATE 10 MG TABLET PO SCH (09:35)
[2017-09-26] MEDS: METOPROLOL TARTRATE 50 MG TABLET PO SCH ×2 (09:35→21:56)
[2017-09-26] MEDS: VALSARTAN 80 MG TABLET PO SCH (09:36)
[2017-09-26] MEDS: GABAPENTIN 300 MG CAPSULE PO SCH ×3 (09:36→17:59)
[2017-09-26] MEDS: DOXAZOSIN MESYLATE (4 MG) 4 MG TABLET PO SCH (09:36)
[2017-09-26 09:42] VITALS: BP 96/62
[2017-09-26 14:41] LABS: CALCIUM, SERUM 8.3 mg/dL (8.5-10.1); CREATININE 1.2 mg/dL (0.6-1.3); POTASSIUM 3.1 mmol/L (3.5-5.1)
[2017-09-26 15:18] LABS: BASOPHILS % (AUTO) 0.2 % (0.0-2.0); EOSINOPHILS # (AUTO) 0.1 /CMM (0.0-0.7); EOSINOPHILS % (AUTO) 1.1 % (0.0-6.0); HEMATOCRIT 33 % (39-51); HEMOGLOBIN 10.5 g/dL (13.5-17.5); LYMPHOCYTES # (AUTO) 1.2 /CMM (0.8-4.8); LYMPHOCYTES % (AUTO) 11.1 % (20.0-44.0); MEAN CORPUSCULAR HEMOGLOBIN 25 PG (26.0-33.0); MEAN CORPUSCULAR HGB CONC 32 g/dl (31.0-36.0); MEAN CORPUSCULAR VOLUME 78 fL (80-96); MONOCYTES # (AUTO) 1.8 /CMM (0.1-1.30); MONOCYTES % (AUTO) 16.8 % (2.0-12.0); NEUTROPHILS # (AUTO) 7.7 /CMM (1.8-8.9); NEUTROPHILS % (AUTO) 70.8 % (43.0-81.0); PLATELET COUNT (AUTO) 219 /CMM (150-450); RDW COEFFICIENT OF VARIATION 16.1 (11.5-15.0); RED BLOOD CELL COUNT(AUTO) 4.21 MIL/uL (4.5-6.0); WHITE BLOOD COUNT (AUTO) 10.9 K/uL (4.3-11.0)
[2017-09-26 16:00] VITALS: BP 101/70
[2017-09-26 17:37] LABS: EOSINOPHILS % (MANUAL) 1 % (0-4); LYMPHOCYTES % (MANUAL) 6 % (16-48); MONOCYTES % (MANUAL) 17 % (0-11.0); NEUTROPHILS % (MANUAL) 76 (42-76)
--- NOTE | 2017-09-26 19:33 | NUR ---
Handoff report to night nurse.
--- NOTE | 2017-09-26 19:51 | NUR ---
RN NOTES COMPLAINED OF BACK PAIN- NORCO 5/325 MF PO GIVEN ORDERED, V/S STABLE
[2017-09-26 20:00] VITALS: BP 99/69
[2017-09-26 20:21] VITALS: BP 99/69
--- NOTE | 2017-09-26 20:21 | NUR ---
RN NOTES RECEIVED PT AWAKE ON BED, A/OX3, COMPLAINED OF PAIN, NO SOB,. CALL LIGHT WITHIN REACH, SDIERAILS UPX2 CONTINUE TO MONITOR
[2017-09-26] MEDS: QUETIAPINE FUMARATE 100 MG TABLET PO SCH (21:57)
[2017-09-26] MEDS: clonazePAM 1 MG TABLET PO SCH (22:00)
--- NOTE | 2017-09-26 22:00 | NUR ---
RN NOTES KLONOPIN 0.5MG PO WAS NOT GIVEN- PT IS TOO SLEEPY TO TAKE IT
[2017-09-27] MEDS: hydrALAZINE HCL 50 MG TABLET PO SCH ×3 (05:00→21:00)
--- NOTE | 2017-09-27 06:28 | NUR ---
RN NOTES SLEEPING BUT AROUSABLE, MORNING CARE RENDERED, DENIES PAIN, NO SOB, CALL LIGHT WITHIN REACH, SIDERAILS UPX2 PT. NEEDS ATTENDED
[2017-09-27 08:00] VITALS: BP 112/70
[2017-09-27] MEDS: FLUTICASONE/VILANTEROL 1 EACH BLST.W.DEV IH SCH (09:16)
[2017-09-27] MEDS: ISOSORBIDE DINITRATE (20MG) 20 MG TABLET PO SCH ×2 (09:17→17:25)
[2017-09-27] MEDS: PANTOPRAZOLE 40 MG VIAL IV SCH (09:17)
[2017-09-27] MEDS: DOXAZOSIN MESYLATE (4 MG) 4 MG TABLET PO SCH (09:17)
[2017-09-27] MEDS: VALSARTAN 80 MG TABLET PO SCH (09:18)
[2017-09-27] MEDS: METOPROLOL TARTRATE 50 MG TABLET PO SCH ×2 (09:18→21:00)
[2017-09-27] MEDS: DOCUSATE SODIUM 100 MG CAPSULE PO SCH ×2 (09:18→17:24)
[2017-09-27] MEDS: GABAPENTIN 300 MG CAPSULE PO SCH ×3 (09:18→17:25)
[2017-09-27] MEDS: LEVETIRACETAM (250 MG) 250 MG TABLET PO SCH ×2 (09:18→21:13)
[2017-09-27] MEDS: AMLODIPINE BESYLATE 10 MG TABLET PO SCH (09:19)
--- NOTE | 2017-09-27 10:49 | NUR ---
[facility] calling again about discharge. Notified technical publications writer would likely have patient ready by 5 pm today possibly sooner. Staff member thanked technical publications writer.
[2017-09-27] MEDS: HYDROCODONE/APAP 5/325MG 1 EACH TABLET PO PRN ×2 (12:00→18:25)
--- NOTE | 2017-09-27 15:02 | NUR ---
[facility] facility form setter/driver refused to take patient back with c. Difficile infection. notified. Placed orders requested.
[2017-09-27 16:00] VITALS: BP 110/79
[2017-09-27] MEDS: LORAZEPAM INJ 2 MG/ML VIAL IV PRN (18:12)
--- NOTE | 2017-09-27 18:58 | NUR ---
Handoff report to night nurse .
--- NOTE | 2017-09-27 19:30 | NUR ---
MSRN SLEEPING WILL RECHECK IN FEW MINUTES, TO CONTINUE.
[2017-09-27 20:00] VITALS: BP 104/70
--- NOTE | 2017-09-27 20:30 | NUR ---
MSRN HL PULLED OUT, RESTARTED 22 GAUGE RIGHT UPPER ARM WITH GOOD BLOOD RETURN. PARTIALLY BATHED, COOPERATIVE. REPOSITIONED, CALL LIGHT WITHIN REACH, REMINDED TO CALL STAFF FOR ANY ASSISTANCE OR DISCOMFORTS, PATIENT ON ISOLATION FOR CDIFF. NO LOOSE BM OF THIS TIME. CLOSELY WATCHED.
[2017-09-27] MEDS: METRONIDAZOLE 500 MG TABLET PO SCH (21:13)
[2017-09-27] MEDS: clonazePAM 1 MG TABLET PO SCH (21:13)
[2017-09-27] MEDS: QUETIAPINE FUMARATE 100 MG TABLET PO SCH (21:13)
--- NOTE | 2017-09-27 22:00 | NUR ---
MSRN BORDERLINE HYPOTENSION, APRESOLINE AND LOPRESSOR HELD. OTHER DUE MEDS ADMINISTERED.
--- NOTE | 2017-09-28 | NUR ---
ms/rn notes received report from rn regarding patient, on cdiff isolation, asleep but arousable, resting comfortably in bed. skin warm to touch. call lights within reach . On bed alarm for safety. respiration even and unlabored. iv on RFA gauge 22. able to verbalize needs.will continue to monitor.
[2017-09-28] MEDS: hydrALAZINE HCL 50 MG TABLET PO SCH ×3 (04:45→21:00)
[2017-09-28] MEDS: METRONIDAZOLE 500 MG TABLET PO SCH ×3 (04:45→21:28)
[2017-09-28] MEDS: HYDROCODONE/APAP 5/325MG 1 EACH TABLET PO PRN ×2 (04:45→10:37)
--- NOTE | 2017-09-28 04:45 | NUR ---
ms/rn notes patient observed guaRDING AND GRIMACE AND VERBALIZED PAIN IN LEFT ARM, WILL GIVE NEEDED PAIN MED NORCO 5-325 MG WILL CHECK EFFECTIVENESS.
--- NOTE | 2017-09-28 06:42 | NUR ---
PATIENT, HOB ELEVATES, ASSISTED FOR COMFORT, B/P CHECK, VERBALIZED PAIN , WILL CONTINUE TO MONITOR, ABLE TO SWALLOW PO MEDS/ WILL CONTINUE TO MONITOR,
[2017-09-28] MEDS: LORAZEPAM INJ 2 MG/ML VIAL IV PRN (07:09)
--- NOTE | 2017-09-28 07:14 | NUR ---
.MS/RN NOTE/*OBSERVED PATIENT SCREAMIN NOT ABLE TO CALM DOWN B/P 137/85
--- NOTE | 2017-09-28 07:40 | NUR ---
ms rn received on bed,very sleepy, but easily wake up, hourly shift manager gave ativan iv as ordered,lungs have yoko's bilateraly, denies pain at this time, will monitor patient.
[2017-09-28 08:00] VITALS: BP 116/69
[2017-09-28] MEDS: DOCUSATE SODIUM 100 MG CAPSULE PO SCH ×2 (09:00→17:00)
--- NOTE | 2017-09-28 09:30 | NUR ---
ms lang breakfast served,due meds given,tolerated well.
[2017-09-28] MEDS: GABAPENTIN 300 MG CAPSULE PO SCH ×3 (10:30→17:38)
[2017-09-28] MEDS: PANTOPRAZOLE 40 MG VIAL IV SCH (10:30)
[2017-09-28] MEDS: LEVETIRACETAM (250 MG) 250 MG TABLET PO SCH ×2 (10:30→21:28)
[2017-09-28] MEDS: DOXAZOSIN MESYLATE (4 MG) 4 MG TABLET PO SCH (10:31)
[2017-09-28] MEDS: ISOSORBIDE DINITRATE (20MG) 20 MG TABLET PO SCH ×2 (10:31→15:47)
[2017-09-28] MEDS: VALSARTAN 80 MG TABLET PO SCH (10:32)
[2017-09-28] MEDS: METOPROLOL TARTRATE 50 MG TABLET PO SCH ×2 (10:32→21:00)
[2017-09-28] MEDS: AMLODIPINE BESYLATE 10 MG TABLET PO SCH (10:32)
[2017-09-28] MEDS: FLUTICASONE/VILANTEROL 1 EACH BLST.W.DEV IH SCH (10:36)
[2017-09-28] MEDS ORDERED: POTASSIUM CHLORIDE 20 MEQ TAB.PRT.SR PO ONE (12:30)
--- NOTE | 2017-09-28 13:00 | NUR ---
ms rn lunch served w/ good appetite,patient refused meds at this time, will try later.
--- NOTE | 2017-09-28 15:30 | NUR ---
ms rn gave lunch meds,no distress noted.
[2017-09-28 16:00] VITALS: BP 117/70
--- NOTE | 2017-09-28 16:00 | NUR ---
MS RN ON BED,SLEEPING, NO COMPLAIN NOTED.
--- NOTE | 2017-09-28 18:02 | NUR ---
MS RN ON BED, EATING DINNER, WILL ENDORSE TO LASER BEAM MACHINE OPERATOR FOR STEFANY.
--- NOTE | 2017-09-28 19:15 | NUR ---
MS/RN NOTES RECEIVED PT. LYING IN BED RESTING. PT. IS EASILY AROUSABLE TO NAME. BREATHING EVEN AND UNLABORED ON ROOM AIR. NO SOB, RESPIRATORY DISTRESS OR COMPLAINTS OF PAIN NOTED AT THIS TIME. PT. WITH RIGHT UPPER ARM IV SALINE LOCK PRESENT, PATENT AND INTACT. PT. WITH ISOLATION PRECAUTIONS IMPLEMENTED AND IN PLACE. PER DAYSHIFT NURSE PT. HAD ONE BM TODAY. NO DIARRHEA NOTED. BED LOCKED AND IN LOWEST POSITION, SIDE RAILS UP X3, CALL LIGHT WITHIN REACH, BED ALARM ON, WILL CONTINUE TO MONITOR.
[2017-09-28 20:00] VITALS: BP 99/68
--- NOTE | 2017-09-28 21:13 | NUR ---
MS/RN NOTES PT. 2200 [address] MEDICATION NOT ADMINISTERED TO PT. BECAUSE HE IS TOO SLEEPY. WILL CONTINUE TO MONITOR.
[2017-09-28] MEDS: clonazePAM 1 MG TABLET PO SCH (22:00)
[2017-09-28] MEDS: QUETIAPINE FUMARATE 100 MG TABLET PO SCH (23:22)
[2017-09-29] MEDS: hydrALAZINE HCL 50 MG TABLET PO SCH ×3 (05:00→17:46)
[2017-09-29] MEDS: METRONIDAZOLE 500 MG TABLET PO SCH ×3 (05:31→20:55)
--- NOTE | 2017-09-29 06:47 | NUR ---
MS/RN NOTES PT. IS LYING IN BED RESTING. BREATHING EVEN AND UNLABORED ON ROOM AIR. NO SOB, RESPIRATORY DISTRESS OR COMPLAINTS OF PAIN NOTED AT THIS TIME. PT. WITH RIGHT UPPER ARM IV SALINE LOCK PRESENT, PATENT AND INTACT. PT. WITH ISOLATION PRECAUTIONS IMPLEMENTED AND IN PLACE. ALL PT. NEEDS MET. PT. ASSISTED AND ENCOURAGED TO TURN AND REPOSITION Q2H AND NEEDED. BED LOCKED AND IN LOWEST POSITION, SIDE RAILS UP X3, CALL LIGHT WITHIN REACH, BED ALARM ON, WILL ENDORSE TO DAYSHIFT NURSE FOR CONTINUITY OF CARE.
--- NOTE | 2017-09-29 07:30 | NUR ---
MS RN RECEIVED ON BED, AWAKE,ALERT,ORIENTED X23,NOT IN ANY FORM OF DISTRESS,RESPIRATIONS EVEN AND UNLABORED, NO SOB NOTED, LUNGS ARE CLEAR,ABDOEMN SOFT,POSITIVE BOWEL SOUNDS, DEBIES PAIN AT THIS TIME,ALL NEEDS ATTENDED.
[2017-09-29 07:48] LABS: BASOPHILS % (AUTO) 0.3 % (0.0-2.0); EOSINOPHILS # (AUTO) 0.1 /CMM (0.0-0.7); EOSINOPHILS % (AUTO) 1.6 % (0.0-6.0); HEMATOCRIT 29 % (39-51); HEMOGLOBIN 9.5 g/dL (13.5-17.5); LYMPHOCYTES # (AUTO) 0.9 /CMM (0.8-4.8); LYMPHOCYTES % (AUTO) 12.5 % (20.0-44.0); MEAN CORPUSCULAR HEMOGLOBIN 25 PG (26.0-33.0); MEAN CORPUSCULAR HGB CONC 33 g/dl (31.0-36.0); MEAN CORPUSCULAR VOLUME 77 fL (80-96); MONOCYTES # (AUTO) 1.7 /CMM (0.1-1.30); MONOCYTES % (AUTO) 22.3 % (2.0-12.0); NEUTROPHILS # (AUTO) 4.7 /CMM (1.8-8.9); NEUTROPHILS % (AUTO) 63.3 % (43.0-81.0); PLATELET COUNT (AUTO) 177 /CMM (150-450); RDW COEFFICIENT OF VARIATION 15.8 (11.5-15.0); RED BLOOD CELL COUNT(AUTO) 3.77 MIL/uL (4.5-6.0); WHITE BLOOD COUNT (AUTO) 7.5 K/uL (4.3-11.0)
[2017-09-29 07:57] LABS: CALCIUM, SERUM 8.8 mg/dL (8.5-10.1); CREATININE 1.2 mg/dL (0.6-1.3); POTASSIUM 4.2 mmol/L (3.5-5.1)
[2017-09-29 08:00] VITALS: BP 126/70
[2017-09-29 08:20] LABS: EOSINOPHILS % (MANUAL) 2 % (0-4); LYMPHOCYTES % (MANUAL) 14 % (16-48); MONOCYTES % (MANUAL) 23 % (0-11.0); NEUTROPHILS % (MANUAL) 61 (42-76)
--- NOTE | 2017-09-29 09:00 | NUR ---
MS [place] BREAKFAST SERVED,DUE MEDS GIVEN,TOLERATED WELL.
[2017-09-29] MEDS: FLUTICASONE/VILANTEROL 1 EACH BLST.W.DEV IH SCH (09:06)
[2017-09-29] MEDS: DOCUSATE SODIUM 100 MG CAPSULE PO SCH ×2 (09:06→17:46)
[2017-09-29] MEDS: LEVETIRACETAM (250 MG) 250 MG TABLET PO SCH ×2 (09:07→20:52)
[2017-09-29] MEDS: PANTOPRAZOLE 40 MG VIAL IV SCH (09:07)
[2017-09-29] MEDS: GABAPENTIN 300 MG CAPSULE PO SCH ×3 (09:07→17:46)
[2017-09-29] MEDS: DOXAZOSIN MESYLATE (4 MG) 4 MG TABLET PO SCH (09:07)
[2017-09-29] MEDS: ISOSORBIDE DINITRATE (20MG) 20 MG TABLET PO SCH ×2 (09:08→17:00)
[2017-09-29] MEDS: VALSARTAN 80 MG TABLET PO SCH (09:08)
[2017-09-29] MEDS: METOPROLOL TARTRATE 50 MG TABLET PO SCH ×2 (09:08→20:51)
[2017-09-29] MEDS: AMLODIPINE BESYLATE 10 MG TABLET PO SCH (09:08)
[2017-09-29 09:30] LABS: MAGNESIUM 1.6 mg/dL (1.8-2.4); PHOSPHORUS 2.4 mg/dL (2.5-4.9)
[2017-09-29] MEDS: LORAZEPAM INJ 2 MG/ML VIAL IV PRN (10:50)
--- NOTE | 2017-09-29 11:00 | NUR ---
MS RN NO DISTRESS NOTED,STILL WAITING FOR DISCHARGE TRANSPORTATION.
[2017-09-29] MEDS ORDERED: K PHOS NEUTRAL 250 MG TABLET PO ONE (11:30)
[2017-09-29] MEDS ORDERED: NEUTRA PHOS 1 POWD.PACKET PO ONE (11:30)
[2017-09-29] MEDS: Magnesium 1GM/D5W 100ML PREMIX 100 ML IV SCH ×2 (12:34→13:56)
[2017-09-29] MEDS: HYDROCODONE/APAP 5/325MG 1 EACH TABLET PO PRN (12:50)
[2017-09-29 16:00] VITALS: BP 92/62
--- NOTE | 2017-09-29 18:24 | NUR ---
MS RN PATIENT WENT TO [facility] VIA AMBULANCE, NO DISTRESS NOTED,ALL NEEDS ATTENDED. Addendum: 09/29/17 at 1826 by SAMIR MATA RN WRONG PATIENT DOCUMENTATION, DISREGARD DOCUMENTATION.
--- NOTE | 2017-09-29 18:26 | NUR ---
MS RN ON BED, STILL WAITING FOR TRANSPORTATION TO BE DISCHARGE,ALL NEEDS ATTENDED.
[2017-09-29 20:38] VITALS: BP 109/75
[2017-09-29] MEDS: QUETIAPINE FUMARATE 100 MG TABLET PO SCH (22:50)
[2017-09-29] MEDS: clonazePAM 1 MG TABLET PO SCH (22:50)
[2017-09-30] MEDS: METRONIDAZOLE 500 MG TABLET PO SCH ×2 (04:22→14:01)
[2017-09-30] MEDS: hydrALAZINE HCL 50 MG TABLET PO SCH ×2 (04:23→13:00)
--- NOTE | 2017-09-30 05:50 | NUR ---
RN NOTES Patient slept comfortably during shift,no significant change in condition. Still on Isolation precautions. Due meds given as ordered. All needs attended. Will continue to monitor.
[2017-09-30 08:00] VITALS: BP 119/79
--- NOTE | 2017-09-30 08:00 | NUR ---
MS RN OPENING NOTE PATIENT IS ALERT AND ORIENTED X4. NO PAIN AT THIS TIME, NO SOB OR DISTRESS NOTED. CALL LIGHT WITHIN REACH. SAFETY MEASURES IMPLEMENTED. ABLE TO COMMUNICATE NEEDS. IV ON RIGHT UPPER ARM INTACT AND PATENT NO REDNESS OR SWELLING NOTED. BEDREST. REGULAR DIET. DENTURES AT BEDSIDE. ON CONTACT ISOLATION FOR C.DIFF NO EPISODES PRESENT AT THIS TIME. WILL CONTINUE TO MONITOR THROUGHOUT SHIFT
[2017-09-30 08:01] LABS: CALCIUM, SERUM 8.6 mg/dL (8.5-10.1); CREATININE 1.2 mg/dL (0.6-1.3); PHOSPHORUS 2.8 mg/dL (2.5-4.9); POTASSIUM 4.2 mmol/L (3.5-5.1)
[2017-09-30] MEDS: FLUTICASONE/VILANTEROL 1 EACH BLST.W.DEV IH SCH (08:12)
[2017-09-30] MEDS: METOPROLOL TARTRATE 50 MG TABLET PO SCH (08:13)
[2017-09-30] MEDS: GABAPENTIN 300 MG CAPSULE PO SCH ×3 (08:13→16:52)
[2017-09-30] MEDS: LEVETIRACETAM (250 MG) 250 MG TABLET PO SCH (08:13)
[2017-09-30] MEDS: AMLODIPINE BESYLATE 10 MG TABLET PO SCH (08:13)
[2017-09-30] MEDS: DOCUSATE SODIUM 100 MG CAPSULE PO SCH ×2 (08:13→16:51)
[2017-09-30] MEDS: DOXAZOSIN MESYLATE (4 MG) 4 MG TABLET PO SCH (08:13)
[2017-09-30] MEDS: ISOSORBIDE DINITRATE (20MG) 20 MG TABLET PO SCH ×2 (08:14→16:52)
[2017-09-30] MEDS: VALSARTAN 80 MG TABLET PO SCH (08:14)
[2017-09-30] MEDS: PANTOPRAZOLE 40 MG VIAL IV SCH (08:14)
[2017-09-30] MEDS: HYDROCODONE/APAP 5/325MG 1 EACH TABLET PO PRN ×2 (08:14→14:01)
[2017-09-30 16:00] VITALS: BP 94/62
--- NOTE | 2017-09-30 18:21 | NUR ---
MS BASTING PULLER NOTE PATIENT IS ALERT AND ORIENTED x3. NO PAIN AT THIS TIME. NO SOB OR DISTRESS NOTED. CALL LIGHT WITHIN REACH AT ALL TIMES. SAFETY MEASURES IMPLEMENTED. ALL DUE MEDICATIONS GIVEN ORDERED. ALL NURSING CARE NEEDS ATTENDED TO. IV REMOVED, SKIN INTACT. NO SKIN ISSUES PRESENT. ALL DISCHARGE INSTRUCTIONS GIVEN TO [employer] AND RECOVERY TECHNICIAN AT [facility] . ALL BELONGINGS WITH PATIENT UPON DISCHARGE, DENTURES CURRENTLY PATIENT WEARING THEM. LEFT VIA AMBULANCE WITH TWO EMT
== END 2017-09-30 18:13 | DRG 435 ==
LOC: ER 16:38 → TELE 23:11 → MED 09-23 08:40
PROVIDERS: ADMIT Legal Medicine; ATTEND Legal Medicine
PROC: 0FB13ZX Excision of Right Lobe Liver, Percutaneous Approach, Diagnostic (ICD-10-PCS; principal; 2017-09-25)
DX: C22.0 Liver cell carcinoma (principal); G93.41 Metabolic encephalopathy; E43 Unspecified severe protein-calorie malnutrition; A04.72 Enterocolitis due to Clostridium difficile, not specified as recurrent; R53.2 Functional quadriplegia; D68.59 Other primary thrombophilia; R11.2 Nausea with vomiting, unspecified; G89.29 Other chronic pain; I10 Essential (primary) hypertension; G40.909 Epilepsy, unspecified, not intractable, without status epilepticus; D63.8 Anemia in other chronic diseases classified elsewhere; K21.9 Gastro-esophageal reflux disease without esophagitis; N40.0 Benign prostatic hyperplasia without lower urinary tract symptoms; Z79.899 Other long term (current) drug therapy; Z87.820 Personal history of traumatic brain injury; R29.6 Repeated falls; F31.9 Bipolar disorder, unspecified; F41.9 Anxiety disorder, unspecified; F17.200 Nicotine dependence, unspecified, uncomplicated; E87.6 Hypokalemia
CPT/HCPCS: 36415; 47000; 71010-TC; 74170-TC; 76705-TC; 77012-TC; 80048-TC; 80053-TC; 80076-TC; 82105; 82378; 82962-TC; 83605-TC; 83690-TC; 83735-TC; 84100-TC; 84484-TC; 85025-TC; 85730-TC; 86301; 87040-TC; 87081-TC; 88305-TC; 88307-TC; 88313-TC; 88342; 97116-TC; 97530-TC; A4606; C9113; J2060; J2250; J2310; J2405; J3010; J3475; J3490; J7030; J7040; J7042; J7050; Q9967; Z7610